=== PATIENT | female | born 1955 | race Caucasian/White ===

== ENCOUNTER 2017-05-13 06:19 | Inpatient (IN) | payer BC ==
--- NOTE | 2017-04-30 17:47 | HP ---
PREOPERATIVE HISTORY AND PHYSICAL: DATE OF ADMISSION/SURGERY: 05/13/17 ATTENDING SURGEONS: Dr. Alexis Hein and Dr. Dakotah Fox. (DICTATED BY PRIYA PATTON) PROCEDURE: Bilateral total knee replacement. CHIEF COMPLAINT: Bilateral knee pain. HISTORY OF PRESENT ILLNESS: Ingrid is a 61-year-old female who presents to the clinic for ongoing bilateral knee pain, left worse than right from severe bilateral knee osteoarthritis. She has increased pain with stairs and is only able to do stairs one at a time. She cannot walk more than 3 blocks. She has significant pain at night. She has failed conservative measures to include physical therapy and NSAIDs, therefore agreed to undergo bilateral total knee replacement with Dr. Hein and Dr. Fox on 05/13/17. PAST MEDICAL HISTORY: 1. Diabetes. 2. Hypertension. 3. Seasonal allergies. 4. Hypercholesterolemia. 5. Depression. 6. GERD. 7. Asthma. PAST SURGICAL HISTORY: 1. Hysterectomy. 2. Nose operation. Denies prior complications with anesthesia. MEDICATIONS: 1. Lipitor 10 mg 1 by mouth at night. 2. Lexapro 20 mg 1 by mouth daily. 3. Omnaris 50 mcg per ACT 1 spray each nostril daily. 4. Metformin HCl ER 500 mg, start 1 daily, increase to 3 daily. 5. Cathi Allergy 60 mg 1 by mouth every day. 6. Omeprazole 20 mg 1 by mouth every day. 7. Aleve 220 mg 2 by mouth twice a day as needed. ALLERGIES: SULFA ANTIBIOTICS. FAMILY HISTORY: Positive for heart disease, diabetes mellitus, cancer. Denies family history of DVT or PE. SOCIAL HISTORY: She lives with her spouse. She is a former smoker, quit 24 years ago. She denies alcohol use or illegal drug use. REVIEW OF SYSTEMS: General: Negative for fevers, chills, or night sweats. No known anesthesia problems. HEENT: Negative for headache, lightheadedness, or syncopal episodes. Integumentary: Negative for abrasions, lesions, or open wounds. Cardiothoracic: Negative for chest pain, palpitations, or edema. Positive for hypertension. Pulmonary: Positive for shortness of breath with exertion due to asthma. Negative for chronic cough or COPD. GI: Positive for GERD. Denies nausea, vomiting, diarrhea, or constipation. : Negative for nocturia, urinary frequency, history of UTI, or kidney problems. Musculoskeletal: Positive for current complaint of bilateral knee pain. Neurologic: Negative for numbness, tingling, history of seizure, stroke, or epilepsy. Endocrine: Positive for diabetes. Negative for thyroid issues. Hematologic: Positive for easy bruising. Denies anemia, excessive bleeding, history of bleeding disorder, or history of DVT or PE. Infectious Disease: Negative for history of MRSA, hepatitis C, or HIV. PHYSICAL EXAMINATION GENERAL: Well-developed, well-nourished 61-year-old female in no acute distress. Alert and oriented x3. Appropriate mood and affect. VITAL SIGNS: Height 62, weight 200. Pulse 74, blood pressure 174/93, temperature 96.8. BMI 32.6. HEENT: Normocephalic, atraumatic. PERRLA. NECK: Supple. Throat clear. PULMONARY: Lungs clear to auscultation bilaterally. No wheezing, rhonchi, or rales. CARDIOVASCULAR: Regular rate and rhythm. S1, S2. No murmurs, gallops, or rubs. No edema. No carotid bruits. ABDOMEN: Positive bowel sounds. Soft, nontender. NEUROLOGIC: Alert and oriented x3. Cranial nerves grossly intact. Sensation is intact to light touch. MUSCULOSKELETAL: Bilateral lower extremities: Slow gait, extension from negative 2 degrees, flexion to 115. Tenderness to palpation over the medial and lateral joint line. Stable to varus and valgus stress. Stable Manuel. Negative posterior drawer. Calves are soft and nontender. +2 dorsalis pedis and posterior tibialis pulse bilaterally. Sensation intact to light touch distally. STUDIES: Multiple radiographs of the bilateral knees show [id number] medial compartment arthritis of the bilateral knees and some changes in the lateral and patellofemoral compartment. IMPRESSION: Bilateral knee osteoarthritis. PLAN: The patient is scheduled to undergo a bilateral total knee replacement with Dr. Hein and Dr. Fox on 05/13/17. Dr. Hein will do one knee and Dr. Fox will operate on the other knee. She will return to the office 10 to 14 days postop for followup x-rays and suture removal. Percocet will be used for postop pain management and aspirin will likely be used for DVT prevention. DEBI HARRIS, PRIYA [id number]/[facility], [place] #: [id number] [place]
[~2017-05-13 06:19] MED LIST: Buffered Lidocaine 0.9% SYRIN* 5 ML/SYR SYRINGE INTRADERM ONE; Buffered Lidocaine 0.9% SYRIN* 5 ML/SYR SYRINGE ONE; Famotidine IV* 10 MG/ML 2 ML (20 mg) IV ONE; Famotidine IV* 10 MG/ML 2 ML (20 mg) ONE; ceFAZolin 2 GM PREMIX(*) 2 GM/50 ML BAG IVPB ONE
[2017-05-13] MEDS ORDERED: Insulin REGULAR(*) 1 UNITS UNIT ONE ×2 (06:26→09:49)
[2017-05-13] MEDS ORDERED: Ondansetron INJ* 2 MG/ML VIAL ONE (07:08)
[2017-05-13] MEDS ORDERED: Ketorolac INJ* 30 MG/ML 1 ML VIAL ONE (07:08)
[2017-05-13] MEDS ORDERED: Midazolam* 1 MG/ML 5 ML VIAL (5 MG) ONE (07:08)
[2017-05-13] MEDS ORDERED: Propofol* 10 MG/ML 20 ML BTL IV PUSH ONE ×2 (07:08→11:11)
[2017-05-13] MEDS ORDERED: Lidocaine 2% PF * 5 ML VIAL ONE (07:08)
[2017-05-13] MEDS ORDERED: fentaNYL* 50 MCG/ML 2 ML VIAL (100 MCG VIAL) ONE (07:08)
[2017-05-13] MEDS ORDERED: KETAMINE HCL* 50 MG/ML 10 ML VIAL ONE (07:08)
[2017-05-13] MEDS ORDERED: Dexamethasone IV* 4 MG/ML 1 ML (4 MG) ONE (07:08)
[2017-05-13] MEDS ORDERED: Bupivacaine 0.5% SDV PF* 30 ML VIAL ONE (07:27)
[2017-05-13] MEDS ORDERED: Levalbuterol HFA INHALER* 1 PUFF MDI ONE (07:27)
[2017-05-13] MEDS ORDERED: Propofol* 500 MG/50 ML BTL ONE (07:28)
[2017-05-13] MEDS ORDERED: Morphine PF AMP (0.5MG/ML)* 5 MG/10 ML AMP ONE (07:28)
[2017-05-13] MEDS ORDERED: Midazolam* 1 MG/ML 2 ML VIAL (2 MG) ONE ×2 (08:05→10:27)
[2017-05-13] MEDS ORDERED: Bupivacaine 0.5% W/EPI SDV* 10 ML VIAL INJ ONE ×2 (08:49)
[2017-05-13] MEDS ORDERED: fentaNYL* 50 MCG/ML 2 ML VIAL (100 MCG VIAL) IV PRN (09:39)
[2017-05-13] MEDS ORDERED: Ondansetron INJ* 2 MG/ML VIAL IV PRN ×2 (09:39→09:41)
[2017-05-13] MEDS ORDERED: DiMENhydriNATE IV* 50 MG/ML VIAL IV PUSH PRN (09:39)
[2017-05-13] MEDS ORDERED: Lactated Ringers 500 ml BAG* 500 ML IV PRN (09:41)
[2017-05-13] MEDS ORDERED: EPHEDrine (Pressors)* 50 MG/ML VIAL IV PUSH PRN (09:41)
[2017-05-13] MEDS ORDERED: oxyCODONE/Acetamin 5/325 MG* TAB PO PRN (09:41)
[2017-05-13] MEDS ORDERED: Naloxone* 0.4 MG/ML 1 ML VIAL IV PRN (09:47)
[2017-05-13] MEDS ORDERED: diPHENhydraMINE IV* 50 MG/ML 1 ml VIAL (BENADRYL) IV PRN ×2 (09:47→23:46)
[2017-05-13] MEDS ORDERED: Ropivacaine 0.2% EPIDURAL* 200 MG/100 ML BAG EPIDURAL SCH (10:00)
[2017-05-13] MEDS ORDERED: Ropivacaine 0.2% EPIDURAL* 200 MG/100 ML BAG EPIDURAL ONE (10:44)
[2017-05-13] MEDS ORDERED: ceFAZolin VIAL(*) 1 GM VIAL ONE (11:06)
[2017-05-13] MEDS ORDERED: Acetaminophen TAB* 325 MG PO PRN (12:28)
[2017-05-13] MEDS ORDERED: Bisacodyl SUPP* 10 MG SUPP PR PRN (12:28)
[2017-05-13] MEDS ORDERED: Dextrose 50% Syringe 50 ML* 25 GM/50 ML SYRINGE IV PUSH PRN (13:01)
[2017-05-13] MEDS ORDERED: Albuterol 2.5 MG/3 ML NEB.SOL* (0.083%) INH PRN (13:02)
[2017-05-13] MEDS ORDERED: Insulin LISPRO* 1 UNITS UNIT SUBCUT ONE (13:36)
--- NOTE | 2017-05-13 13:58 | RAD ---
Indication: Immediate postop exam following bilateral total knee replacement. Comparison: January 06, 2017 radiographs. Technique: Portable AP and cross table lateral views bilateral knees. Report: RIGHT knee: Status post total knee replacement. Anterior cutaneous alma and surgical drain in place. Post-op fluid and gas is seen in the joint space and anterior subcutaneous tissues. Alignment is anatomic. No periprosthetic fracture evident. LEFT knee: Status post total knee replacement. Anterior cutaneous alma in place. Post-op fluid and gas is seen in the joint space and anterior subcutaneous tissues. Alignment is anatomic. No periprosthetic fracture evident. IMPRESSION: Unremarkable immediate postoperative appearance following bilateral total knee replacement.
[2017-05-13] MEDS ORDERED: Warfarin TAB(*) 6 MG PO ONE (17:00)
[2017-05-13] MEDS: Atorvastatin* 10 MG TAB PO SCH (18:14)
[2017-05-13] MEDS: Insulin LISPRO* 1 UNITS UNIT SUBCUT SCH (18:15)
[2017-05-13] MEDS: Omeprazole CAP* 20 MG PO SCH (18:15)
[2017-05-13] MEDS: ceFAZolin VIAL(*) 1 GM in NS 0.9% 50 ML* 50 ML IVPB SCH (18:18)
[2017-05-13 20:33] LABS: Hematocrit 34 % (35-47)
[2017-05-13] MEDS: Docusate CAP* 100 MG PO SCH (21:51)
--- NOTE | 2017-05-13 22:23 | CONS ---
CC: Dr. Hein; Lisa Rogers NP * CONSULTATION REPORT: DATE OF CONSULT: 05/13/17 REQUESTING PHYSICIAN FOR CONSULT: Dr. Hein. ATTENDING PHYSICIAN WHILE IN THE HOSPITAL: Armando Avila MD (report dictated by Live Marvin NP). PRIMARY CARE PROVIDER: Lisa Rogers NP in [place]. REASON FOR MEDICAL CONSULTATION: Evaluation and medical management of comorbid medical conditions. HISTORY OF PRESENT ILLNESS: Ms. Lopez is a 61-year-old female patient that presented to the outpatient setting to Dr. Hein and Dr. Fox with complaints of bilateral lower knee pain. It was affecting her activities of daily living. She was failing conservative therapy. The patient ultimately elected to go for bilateral total knee replacement which she underwent today. She does carry a history of diabetes, hyperlipidemia, GERD, depression, and asthma. Because of this, we were asked to evaluate in consult. She was evaluated in the PACU in the postoperative setting. She states she is feeling well. She has no sensations to her lower extremities. She denies having any chest pain or shortness of breath. There is no abdominal pain. She denies having any abdominal pain. She states that her pain is well controlled currently in her knees. There is no lightheadedness. Denies having any chest pain or shortness of breath, but because of her medical complexity, we were asked to evaluate in consult. PAST MEDICAL HISTORY: Significant for: 1. Diabetes. 2. Hyperlipidemia. 3. Gastroesophageal reflux disease. 4. Depression. 5. Asthma. PAST SURGICAL HISTORY: 1. She has had a hysterectomy. 2. She has had nasal surgery. 3. She has recently had a bilateral total knee replacement. HOME MEDICATIONS: According to the preop list include: 1. Metformin 1000 mg p.o. daily. 2. Prilosec 20 mg daily. 3. Edison-3 fatty acid 1000 mg p.o. b.i.d. 4. Naproxen 440 mg p.o. q.p.m. 5. Multivitamin 1 tablet daily. 6. Fexofenadine 180 mg p.o. daily. 7. Lexapro 20 mg daily. 8. Acetaminophen 500 mg p.o. daily. 9. Calcium 500 mg daily. 10. Lipitor 10 mg p.o. daily. ALLERGIES TO MEDICATIONS: Include SULFA and AUGMENTIN. FAMILY HISTORY: Her mother had a history of CVA. Father had a history of OR. SOCIAL HISTORY: She is a former smoker. She quit about 24 years ago. She does not drink alcohol. Surrogate decision make is her . REVIEW OF SYSTEMS: There is no documented fever. Denied having any significant weight change. There was no double vision. There is no ear discharge. There was no rhinorrhea. There was no sore throat. No thyroid enlargement. Denied having any chest pain. There was no orthopnea. No nocturnal dyspnea. There is no abdominal pain. No nausea, no vomiting. No dysuria, no frequency. No loss of consciousness. No pruritus and no skin ulcerations. Review of 14 systems completed, all others negative. PHYSICAL EXAM: Vital Signs: Blood pressure 101/56 with a pulse 79, respirations 16, O2 sat 95% on 2 L, temperature was 96.8. General: At this time, Ms. Lopez is a 61-year-old female patient. She is sitting in the PACU bed. She does not appear to be in any acute distress. HEENT: Head is atraumatic, normocephalic. Eyes: EOMs intact. Sclerae anicteric and not pale. Neck: Supple. Throat: Oral mucosa appears to be moist. No oropharyngeal erythema. Heart: Sounds S1, S2. Regular rate and rhythm. No murmurs, rubs or gallops. Lungs: Clear to auscultation. No wheezes, rales or rhonchi. Abdomen: Soft, flat, nontender. Bowel sounds hypoactive. Extremities: She had distal pulses in bilateral lower extremities. She had good cap refill. She has no sensation or movement of lower extremities because of recent spinal anesthesia, but other distal SCM checks were intact. She is moving the upper extremity with 5/5 strength. Neurologically, she is awake, she is alert, she is oriented x3. Tongue is midline. Medical Concierge were equal. No gross focal deficits. The skin is intact with the exception she has got bilateral incision to her knees, which are covered with Hugh dressings and there are Hemovac's intact. DIAGNOSTIC STUDIES/LAB DATA: She had an EKG preoperatively, which does show a normal sinus rhythm rate of 74. No ST elevations or T-wave inversions noted. She had a negative UA. Preoperatively INR 0.90. Her hemoglobin was 14.2, hematocrit 42, RBC of 4.56, glucose was 362, but her A1c was 8.1. BUN 12, creatinine 0.90, sodium 137, potassium 5.1, chloride 104, bicarb 29, AST 29, ALT 76. Old medical records were reviewed. ASSESSMENT AND PLAN: Ms. Lopez is a 61-year-old female patient presenting to Dr. Hein service today for an elective bilateral total knee replacement. We were asked to evaluate for consult for medical management. Our recommendations at this point are: 1. Bilateral total knee replacement. I will defer the management to Dr. Hein and his team. 2. Diabetes. I will put her on lispro sliding scale. 3. Hyperlipidemia. Continue statin. 4. Gastroesophageal reflux disease. Continue PPI therapy. 5. Depression. Continue Lexapro. 6. History of asthma. I did order p.r.n. albuterol and I would recommend incentive spirometry. 7. DVT prophylaxis. I will defer to the primary team. 8. Code Status. Full code. 9. Fluids, electrolytes and nutrition. I would recommend a consistent carb diet. TIME SPENT: Time spent on the consult was 60 minutes, greater than half the time was spent [id number] with the patient obtaining my history and physical, the other half the time spent going over the plan of care with the patient and implementing plan of care. I did discuss the plan of care with my attending, Dr. Avila, he is in agreement. LIVE MARVIN, DANE [id number]/[facility] #: [id number] [place]
[2017-05-13] MEDS: oxyCODONE/Acetamin 5/325 MG* TAB PO PRN (23:58)
[2017-05-14] MEDS: ceFAZolin VIAL(*) 1 GM in NS 0.9% 50 ML* 50 ML IVPB SCH ×2 (00:57→08:23)
[2017-05-14] MEDS: oxyCODONE/Acetamin 5/325 MG* TAB PO PRN ×4 (05:51→23:18)
[2017-05-14] MEDS ORDERED: Morphine INJ* 2 MG/ML 1 ML SYRINGE IV PRN (06:01)
[2017-05-14] MEDS ORDERED: oxyCODONE/Acetamin 5/325 MG* TAB PO PRN (06:01)
[2017-05-14] MEDS ORDERED: Ondansetron INJ* 2 MG/ML VIAL IV PRN (06:01)
[2017-05-14 06:26] LABS: Hematocrit 29 % (35-47); Hemoglobin 9.7 g/dl (12.0-16.0); Mean Corpuscular HGB Conc 34 g/dl (31-36); Mean Corpuscular Hemoglobin 31 pg (27-31); Mean Corpuscular Volume 91 fL (80-97); Mean Platelet Volume 9 um3 (7.4-10.4); Red Blood Count 3.15 10^6/ul (4.0-5.4); Red Cell Distribution Width 12 % (10.5-15); White Blood Count 12.4 10^3/ul (3.5-10.8)
[2017-05-14 06:45] LABS: Calcium 8.4 mg/dL (8.6-10.3); EGFR African American 123.1 (>60); EGFR Non-African American 95.8 (>60); Potassium 4.1 mmol/L (3.5-5.0)
[2017-05-14] MEDS: Insulin LISPRO* 1 UNITS UNIT SUBCUT SCH ×3 (08:22→17:41)
[2017-05-14] MEDS: Docusate CAP* 100 MG PO SCH ×2 (08:23→20:29)
[2017-05-14] MEDS: Citalopram TAB* 40 MG PO SCH (08:23)
[2017-05-14] MEDS: Aspirin TAB* 325 MG PO SCH (10:03)
[2017-05-14] MEDS: Heparin VIAL(*) 5000 UNITS/ML VIAL (FIVE THOUSAND) SUBCUT SCH ×2 (10:04→20:30)
--- NOTE | 2017-05-14 13:08 | OP ---
DATE OF OPERATION: 05/13/17 - ROOM #346 DATE OF : 53 SURGICAL CARE: Bilateral knees. SURGEONS: 1. Right knee, Alexis Hein MD 2. Left knee, Dakotah Fox MD ANESTHESIOLOGIST: Arnav Thakur MD. ANESTHESIA: Spinal with Duramorph and epidural, IV sedation. PRE-OP DIAGNOSIS: Severe arthritis, left knee and right knee with some varus alignment. POST-OP DIAGNOSIS: Severe arthritis, left knee and right knee with some varus alignment. OPERATIVE PROCEDURE: 1. Right total knee replacement - Dr. Alexis Hein; assisted by PRIYA Leonard , librarian assistant. 2. Left total knee replacement - Dr. Dakotah Fox, surgeon; PRIYA Del Rio, librarian assistant. COMPLICATIONS: There were no complications. DRAINS: Two blood collection drains were utilized on the right knee. ESTIMATED BLOOD LOSS: 350 mL. REPLACEMENT: Crystalloid fluids. CONDITION: Stable to the recovery room. INDICATION FOR SURGERY: Severe knee arthritis, no longer responsive to nonoperative care. The total knee replacements were on the right knee, the Lisbet Persona knee posterior stabilized size F, size 5 femur, 32 patella, 10 articular surface, and a C tibia with a peg extension. Cemented. The left total knee replacement was Lisbet Persona cruciate retaining prosthesis size 5 femur, 29 patella, 12 articular surface and a size C tibia. Cemented. The surgical care was done simultaneously with Dr. Hein doing the right knee and the librarian assistant was Ryan Gamez, and Dr. Fox did the left knee and the librarian assistant was Jayro Fierro. DESCRIPTION OF PROCEDURE: The patient was brought to the operating room and placed on the operating table in supine position following the administration of the spinal anesthetic and insertion of the Duramorph and then the epidural catheter. The patient was carefully placed in the supine position and positioned on the table. Conway catheter was carefully inserted. Each leg was then wrapped with a proximal thigh tourniquet and each leg after careful positioning and placing of foot pieces. Each leg was given a preliminary chlorhexidine prep and then a formal ChloraPrep from the tourniquet to the tips of the toes. After prepping, draping and carefully sealing off, we did our universal protocol time-out confirming Ingrid Saucedocher and the plan for bilateral total knee replacements to be done simultaneously by the 2 surgeons. We all agreed and we proceeded. On the left knee, the leg was exsanguinated and the tourniquet elevated to 300. The tourniquet time on the left knee was 2 hours with a rest period and then another hour and on the right knee, the tourniquet was utilized in the cleanup and cementing phase of the case but was not utilized otherwise. On the right knee, careful hemostasis checked and achieved throughout the case as it was on the left and the tourniquet was utilized at the time of cleanup and cement. Right Knee: The skin incision went from the medial aspect of the tibial tubercle to two fingerbreadths proximal to the superior pole of the patella. Skin and subcu divided down to the bursa. The bursa was traversed and the knee was entered medial parapatellar dividing the anteromedial soft tissues on the tibia down to the bone just medial to the tibial tubercle going up to the joint line and then to the medial patella and dividing the quad mechanism close to the junction of the vastus medialis tendon and the rectus femoris tendon going 3 to 4 cm proximal to superior pole of the patella. The patella was everted. The peripatellar synovectomy was completed. The anteromedial soft tissues on the tibia were elevated subperiosteally going around to the deep MCL and then to the posteromedial corner of the knee. The patient had complete eburnation of bone on the medial femoral condyle, medial tibial plateau, large osteophytes there and moderate degenerative changes in the lateral and patellofemoral compartment. The remains of the anterior horn of medial meniscus were carefully excised. The ACL and PCL were uplifted from their femoral origins and the tibia was made so that could be subluxated for from under the femur and careful hemostasis was checked and achieved while working posteriorly with careful use of electrocautery. The lateral meniscus was carefully excised and care was taken to keep good hemostasis peripheral to the lateral meniscus in the region of the lateral geniculate. The distal anterior femur was exposed subperiosteally for referencing and measuring. Once the exposure was obtained, then the proximal tibial cut was made first. The patient had a small flexion contracture of the knee, so the distal femoral cutting guide was applied with a goal of having the tibial surface that would be perpendicular to long access of the tibia and had a slight posterior slope removing 3 to 4 mm of bone on the low medial side and 8 to 11 mm laterally. After the tibial cut was completed, the femoral intramedullary drill was utilized. The femoral canal was suctioned to discourage embolization. The femoral cutting guide was applied on #1 because of slight flexion contracture and 6 degrees of valgus. The distal femoral cut was completed. The extension gap was noted to be very satisfactory for the 10 mm block. The femur was measured for a size 5. The anterior, posterior and chamfering cuts were completed. Following this, we finished removal of the PCL , posterior horn of medial meniscus and at this stage, we had nice ligamentous balance and 90 degrees of flexion with a 10 mm block and an extension with a 10 mm block. The femur was completed with the intercondylar cutout. The tibia was completed for a size C. The knee was articulated and extended with a c tibia 10 articular surface and the 5 femur with good full knee extension, stable ligaments in extension, stable ligaments in 90 degrees of flexion. The patella was cut flat. A 32 was chosen. Some excess cartilage was removed from the lateral facet and the odd facet and 3 drill holes were made and these were undercut for optimal cement digitation. The femoral canal was cleaned times 6 to 7 with saline, suctioned empty and the bone plug was inserted. The right leg was then exsanguinated, tourniquet elevated to 275 and the knee was cleaned in extension with 2 L of pulse saline irrigation. The knee was cleaned in flexion with retractors in place. All bony surfaces were cleaned and then dried. The cement was mixed and the components were cemented into position, patella followed by tibia, followed by femur. Each component was impacted. Excess cement was removed and the knee was articulated and extended during the final hardening. We then deflated the tourniquet. Careful hemostasis checked and achieved throughout the closure. We irrigated several times during closure with saline. We elected to use 2 drains coming out of the superolateral suprapatellar pouch. The quad mechanism closed with interrupted # 1 Polysorb in [id number] fashion, the same with the medial retinaculum and more distally we used 0 Polysorb. The deep bursa closed with interrupted 0 Polysorb and then the superficial subcu were used 3- 0 Polysorb inverted stitches. The knee was infiltrated during the closure with Marcaine 0.5% with epinephrine 30 mL, 15 mL posteromedially, 5 medially, 5 laterally and another 5 mL intra-articular. The skin was closed with alma. The skin was then washed and dried, covered with Betadine soaked release followed by sterile gauze. The drains were dressed with the same and sterile Webril, further Webril , Cryotherapy cuff and then a 6-inch Hugh bandage loosely applied. The dorsalis pedis pulse was 2+ at the end of the case and the procedure was well tolerated. Dr. Fox will dictate the procedure on the left knee. At the end the surgeries were washed and dressed. The right knee was dressed with sterile gauze, sterile Webril, Cryotherapy cuff, and a 6-inch Hugh bandage loosely applied. The left and right dorsalis pedis pulses were 2+ at the end of the case and the patient was returned to the recovery room in stable and satisfactory condition having tolerated the knee replacements very well. [id number]/[facility] #: [id number] MTDD
[2017-05-14] MEDS: oxyCODONE TAB* 5 MG TAB PO PRN ×2 (13:25→20:29)
--- NOTE | 2017-05-14 15:09 | PN ---
Subjective Date of Service: 05/14/17 Objective Active Medications: Acetaminophen (Tylenol Tab*) 650 mg PO Q4H PRN PRN Reason: PAIN OR TEMPERATURE Albuterol (Ventolin 2.5 Mg/3 Ml Neb.Shanon*) 2.5 mg INH Q2H PRN PRN Reason: SOB/WHEEZING Aspirin (Aspirin Tab*) 325 mg PO DAILY [facility] Last Admin: 05/14/17 10:03 Dose: 325 mg Atorvastatin Calcium (Lipitor*) 10 mg PO QPM [facility] Last Admin: 05/13/17 18:14 Dose: 10 mg Bisacodyl (Dulcolax Supp*) 10 mg [place] DAILY PRN PRN Reason: constipation Citalopram Hydrobromide (Celexa Tab*) 40 mg PO QAM [facility] Last Admin: 05/14/17 08:23 Dose: 40 mg Dextrose (D50w Syringe 50 Ml*) 12.5 gm IV PUSH .FOR FS < 60 - SS PRN PRN Reason: FS < 60 Diphenhydramine HCl (Benadryl Iv*) 25 mg IV Q6H PRN PRN Reason: itching or insomnia Docusate Sodium (Colace Cap*) 100 mg PO BID [facility] Last Admin: 05/14/17 08:23 Dose: 100 mg Heparin Sodium (Porcine) (Heparin Vial(*)) 5,000 units SUBCUT BID [facility] Last Admin: 05/14/17 10:04 Dose: 5,000 units Lactated Ringer's (Lactated Ringers 1000 Ml Bag*) 1,000 mls @ 125 mls/hr IV PER RATE [facility] Last Admin: 05/14/17 10:01 Dose: 125 mls/hr Insulin Human Lispro (Humalog*) 0 units SUBCUT AC [facility] PRN Reason: Protocol Last Admin: 05/14/17 12:30 Dose: 3 unit Morphine Sulfate (Morphine Inj (Syringe)*) 2 mg IV Q2H PRN PRN Reason: PAIN - UNCONTROLLED Omeprazole (Prilosec Cap*) 20 mg PO QPM [facility] Last Admin: 05/13/17 18:15 Dose: 20 mg Ondansetron HCl (Zofran Inj*) 4 mg IV Q6H PRN PRN Reason: nausea Oxycodone HCl (Roxycodone Tab*) 10 mg PO Q4H PRN PRN Reason: pain severe Last Admin: 05/14/17 13:25 Dose: 10 mg Oxycodone/Acetaminophen (Percocet 5/325 Tab*) 1 tab PO Q4H PRN PRN Reason: PAIN - MODERATE Oxycodone/Acetaminophen (Percocet 5/325 Tab*) 2 tab PO Q4H PRN PRN Reason: PAIN - MODERATE TO SEVERE Last Admin: 05/14/17 10:07 Dose: 2 tab Vital Signs 05/13/17 05/13/17 05/13/17 15:15 15:35 15:45 Temperature 97.6 F Pulse Rate 69 70 Respiratory 16 14 14 Rate Blood Pressure 120/66 113/54 (mmHg) O2 Sat by Pulse 97 94 Oximetry 05/13/17 05/13/17 05/13/17 16:00 16:41 17:32 Temperature 97.5 F 98.0 F Pulse Rate 70 75 Respiratory 16 17 Rate Blood Pressure 124/69 128/66 (mmHg) O2 Sat by Pulse 97 95 96 Oximetry 05/13/17 05/13/17 05/13/17 19:43 20:00 21:26 Temperature 98.1 F 98.3 F Pulse Rate 73 67 Respiratory 20 16 17 Rate Blood Pressure 130/67 127/64 (mmHg) O2 Sat by Pulse 95 96 Oximetry 05/13/17 05/13/17 05/13/17 22:03 23:52 23:58 Temperature 98.0 F Pulse Rate 68 71 Respiratory 14 16 16 Rate Blood Pressure 117/53 (mmHg) O2 Sat by Pulse 97 99 Oximetry 05/14/17 05/14/17 05/14/17 00:00 01:58 04:28 Temperature 97.7 F Pulse Rate 64 Respiratory 14 16 Rate Blood Pressure 130/55 (mmHg) O2 Sat by Pulse 99 96 Oximetry 05/14/17 05/14/17 05/14/17 05:51 07:30 07:51 Temperature 97.6 F Pulse Rate 70 Respiratory 16 17 18 Rate Blood Pressure 129/61 (mmHg) O2 Sat by Pulse 97 Oximetry 05/14/17 05/14/17 05/14/17 08:00 10:07 11:21 Temperature 98.1 F Pulse Rate 74 Respiratory 18 18 16 Rate Blood Pressure 138/61 (mmHg) O2 Sat by Pulse 97 96 Oximetry 05/14/17 05/14/17 12:07 13:25 Temperature Pulse Rate Respiratory 18 18 Rate Blood Pressure (mmHg) O2 Sat by Pulse Oximetry Result Diagrams: 05/14/17 05:33 05/14/17 05:33 Assess/Plan/Problems-Billing Assessment:
--- NOTE | 2017-05-14 15:15 | PN ---
Subjective Date of Service: 05/14/17 Interval History: Patient seen and examined at bedside. Ms. Lopez is sitting up in bed eating lunch. She reports some mild discomfort to her knees but states that it' s manageable. Reports good relief with the pain medication regimen. Denies CP, SOB, n/v. Tolerating PT well. At home, she reports that her BG is usually well controlled in the 120s-130s. Family History: Unchanged from Admission Social History: Unchanged from Admission Past Medical History: Unchanged from Admission Objective Active Medications: Acetaminophen (Tylenol Tab*) 650 mg PO Q4H PRN PRN Reason: PAIN OR TEMPERATURE Albuterol (Ventolin 2.5 Mg/3 Ml Neb.Shanon*) 2.5 mg INH Q2H PRN PRN Reason: SOB/WHEEZING Aspirin (Aspirin Tab*) 325 mg PO DAILY [facility] Last Admin: 05/14/17 10:03 Dose: 325 mg Atorvastatin Calcium (Lipitor*) 10 mg PO QPM [facility] Last Admin: 05/13/17 18:14 Dose: 10 mg Bisacodyl (Dulcolax Supp*) 10 mg MO DAILY PRN PRN Reason: constipation Citalopram Hydrobromide (Celexa Tab*) 40 mg PO QAM [facility] Last Admin: 05/14/17 08:23 Dose: 40 mg Dextrose (D50w Syringe 50 Ml*) 12.5 gm IV PUSH .FOR FS < 60 - SS PRN PRN Reason: FS < 60 Diphenhydramine HCl (Benadryl Iv*) 25 mg IV Q6H PRN PRN Reason: itching or insomnia Docusate Sodium (Colace Cap*) 100 mg PO BID [facility] Last Admin: 05/14/17 08:23 Dose: 100 mg Heparin Sodium (Porcine) (Heparin Vial(*)) 5,000 units SUBCUT BID [facility] Last Admin: 05/14/17 10:04 Dose: 5,000 units Lactated Ringer's (Lactated Ringers 1000 Ml Bag*) 1,000 mls @ 125 mls/hr IV PER RATE [facility] Last Admin: 05/14/17 10:01 Dose: 125 mls/hr Insulin Human Lispro (Humalog*) 0 units SUBCUT AC [facility] PRN Reason: Protocol Last Admin: 05/14/17 12:30 Dose: 3 unit Morphine Sulfate (Morphine Inj (Syringe)*) 2 mg IV Q2H PRN PRN Reason: PAIN - UNCONTROLLED Omeprazole (Prilosec Cap*) 20 mg PO QPM [facility] Last Admin: 05/13/17 18:15 Dose: 20 mg Ondansetron HCl (Zofran Inj*) 4 mg IV Q6H PRN PRN Reason: nausea Oxycodone HCl (Roxycodone Tab*) 10 mg PO Q4H PRN PRN Reason: pain severe Last Admin: 05/14/17 13:25 Dose: 10 mg Oxycodone/Acetaminophen (Percocet 5/325 Tab*) 1 tab PO Q4H PRN PRN Reason: PAIN - MODERATE Oxycodone/Acetaminophen (Percocet 5/325 Tab*) 2 tab PO Q4H PRN PRN Reason: PAIN - MODERATE TO SEVERE Last Admin: 05/14/17 10:07 Dose: 2 tab Vital Signs 05/13/17 05/13/17 05/13/17 15:15 15:35 15:45 Temperature 97.6 F Pulse Rate 69 70 Respiratory 16 14 14 Rate Blood Pressure 120/66 113/54 (mmHg) O2 Sat by Pulse 97 94 Oximetry 05/13/17 05/13/17 05/13/17 16:00 16:41 17:32 Temperature 97.5 F 98.0 F Pulse Rate 70 75 Respiratory 16 17 Rate Blood Pressure 124/69 128/66 (mmHg) O2 Sat by Pulse 97 95 96 Oximetry 05/13/17 05/13/17 05/13/17 19:43 20:00 21:26 Temperature 98.1 F 98.3 F Pulse Rate 73 67 Respiratory 20 16 17 Rate Blood Pressure 130/67 127/64 (mmHg) O2 Sat by Pulse 95 96 Oximetry 05/13/17 05/13/17 05/13/17 22:03 23:52 23:58 Temperature 98.0 F Pulse Rate 68 71 Respiratory 14 16 16 Rate Blood Pressure 117/53 (mmHg) O2 Sat by Pulse 97 99 Oximetry 05/14/17 05/14/17 05/14/17 00:00 01:58 04:28 Temperature 97.7 F Pulse Rate 64 Respiratory 14 16 Rate Blood Pressure 130/55 (mmHg) O2 Sat by Pulse 99 96 Oximetry 05/14/17 05/14/17 05/14/17 05:51 07:30 07:51 Temperature 97.6 F Pulse Rate 70 Respiratory 16 17 18 Rate Blood Pressure 129/61 (mmHg) O2 Sat by Pulse 97 Oximetry 05/14/17 05/14/17 05/14/17 08:00 10:07 11:21 Temperature 98.1 F Pulse Rate 74 Respiratory 18 18 16 Rate Blood Pressure 138/61 (mmHg) O2 Sat by Pulse 97 96 Oximetry 05/14/17 05/14/17 12:07 13:25 Temperature Pulse Rate Respiratory 18 18 Rate Blood Pressure (mmHg) O2 Sat by Pulse Oximetry Oxygen Devices in Use Now: None Appearance: Pleasant, middle aged female, sitting up in bed, NAD Eyes: No Scleral Icterus Ears/Nose/Mouth/Throat: Mucous Membranes Moist Neck: NL Appearance and Movements; NL JVP Respiratory: Symmetrical Chest Expansion and Respiratory Effort, Clear to Auscultation Cardiovascular: NL Sounds; No Murmurs; No JVD, RRR Abdominal: NL Sounds; No Tenderness; No Distention Extremities: - - bilateral knee dressings c/d/i, distally nvi Neurological: Alert and Oriented x 3, NL Muscle Strength and Tone Lines/Tubes/Other Access: Clean, Dry and Intact Peripheral IV Nutrition: Taking PO's Result Diagrams: 05/14/17 05:33 05/14/17 05:33 Assess/Plan/Problems-Billing Assessment: Ms. Lopez is a 61 yo female with a PMH of DM, HLD, GERD, depression, and asthma who was electively admitted on 05/13 for bilateral total knee replacements. - Patient Problems (1) Status post total bilateral knee replacement Code(s): Z96.653 - PRESENCE OF ARTIFICIAL KNEE JOINT, BILATERAL Comment: POD #1, management per ortho Mild dip HH but hemodynamically stable, continue to monitor PT/OT PMRU referral Pain management (2) Diabetes mellitus Code(s): E11.9 - TYPE 2 DIABETES MELLITUS WITHOUT COMPLICATIONS Comment: Mildly elevated, fasting BG in 150s this AM Suspect stress response, patient reports good control at home Check A1c, continue Lispro SSI, may add Lantus for better baseline control (3) HLD (hyperlipidemia) Code(s): E78.5 - HYPERLIPIDEMIA, UNSPECIFIED Comment: Continue home atorvastatin. (4) GERD (gastroesophageal reflux disease) Code(s): K21.9 - GASTRO-ESOPHAGEAL REFLUX DISEASE WITHOUT ESOPHAGITIS Comment : Continue omeprazole. (5) Asthma Code(s): J45.909 - UNSPECIFIED ASTHMA, UNCOMPLICATED Comment: Continue prn albuterol (6) Depression Code(s): F32.9 - MAJOR DEPRESSIVE DISORDER, SINGLE EPISODE, UNSPECIFIED Comment: Continue citalopram (7) DVT prophylaxis Comment: Per ortho ASA and SQ heparin Status and Disposition: Inpatient admission. Dispo per ortho. Hospitalist co medical management.
[2017-05-14] MEDS: Omeprazole CAP* 20 MG PO SCH (17:40)
[2017-05-14] MEDS: Atorvastatin* 10 MG TAB PO SCH (17:40)
[2017-05-14 19:05] LABS: Hematocrit 30 % (35-47); Hemoglobin 9.8 g/dl (12.0-16.0)
--- NOTE | 2017-05-14 19:37 | OP ---
DATE OF OPERATION: 05/13/17 - ROOM #346 DATE OF : 53 SURGEON: Alexis Hein MD ASSISTANTS: 1. Dakotah Fox MD 2. PRIYA Del Rio 3. PRIYA Perez ANESTHESIOLOGIST: Arnav Thakur MD. ANESTHESIA: Epidural anesthesia, local anesthesia. PRE-OP DIAGNOSIS: Bilateral knee osteoarthritis. POST-OP DIAGNOSIS: Bilateral knee osteoarthritis. OPERATIVE PROCEDURE: Bilateral total knee arthroplasty. IV FLUIDS: 2800 cc crystalloid. ANTIBIOSIS: 2 g Ancef IV just prior to incision and 2 g Ancef IV near closure, 3 hours later. TOURNIQUET TIME, LEFT: Left lower extremity tourniquet time was 120 minutes. Tourniquet was then deflated for 15 minutes and then reinflated for 60 minutes. ESTIMATED BLOOD LOSS, BILATERAL: 250 cc for bilateral knees COMPLICATIONS: None. IMPLANTS, LEFT: For the left knee were as follows: Lisbet Persona knee, femur size 5, cruciate retaining, tibia size C, patella size 29 and insert, polyethylene, 12, CR. SPECIMEN: None. INDICATIONS FOR PROCEDURE: The patient had a long history of osteoarthritis of bilateral knees, insufficiently responsive to nonoperative management, and she opted for total knee arthroplasty procedure. The patient preferred bilateral total knee arthroplasties performed in 1 procedure, and she had discussed with Dr. Hein the benefits, risks, and complications of the arthroplasty procedure and the bilateral arthroplasty procedure specifically. They reviewed thoroughly these benefits, risks, and possible complications. DESCRIPTION OF PROCEDURE - LEFT TOTAL KNEE ARTHROPLASTY: Preoperative written consent was obtained. Operative extremity was marked in preoperative holding along with the operative right lower extremity. The patient was taken back to the operating room and sat up on operating room table. Epidural catheter was placed by anesthesiologist, Dr. Thakur. The patient was next sedated. The patient was placed supine. Left knee examination under anesthesia was performed and demonstrated approximately 0 to 115 degrees of flexion. Stable varus, valgus and ACL, PCL stress testing. A proximal left thigh tourniquet was placed, but not yet inflated. A lateral post was placed attached to the bed to prevent external rotation of the left lower extremity. Two bumps were placed on the table such that the left knee would be held in 90 and approximately 110 degrees of flexion. The bilateral lower extremities were prepped and draped. Surgical time-out was performed. Esmarch was applied to the left lower extremity and the tourniquet was elevated to 300 mmHg. An anterior midline longitudinal incision was made from 3 fingerbreadths proximal to the proximal pole of the patella to 2 fingerbreadths distal to the proximal most extent of the tibial tuberosity. The knife was exchanged for a deep knife and dissection was continued down to the patella. Subcutaneous tissue overlying the extensor mechanism proximally was cut with a curved Fernandez. Using severing strokes, the 10 blade revealed the medial aspect of the extensor mechanism from the tibial tuberosity to the quadriceps mechanism. Cross harrington with Bovie electrocautery and marker was used to guy the superomedial corner of the extensor mechanism. A pen was then used to outline the arthrotomy incision. This was all done with the knee in 90 degrees of flexion. A deep 10 blade was then used to make a medial parapatellar arthrotomy including a quadriceps split. Distally, this incision was carried down through the anterior horn of the medial meniscus. Joint fluid was evacuated. Extensive degenerative changes throughout the knee were appreciated visually. The knee was then fully extended. Bovie electrocautery was used to subperiosteally peel back capsule from the anteromedial aspect of the medial tibial plateau. A one- fourth curved osteotome was used to continue this dissection to the mid sagittal point medially on the medial tibial plateau. We continued the electrocautery and finger dissection lateral from the parapatellar arthrotomy along the lateral tibial plateau. We partially everted the patella. With Bovie electrocautery, we released a ring of soft tissue around the patella. We next released some, but not all, of the fat pad deep to the patellar tendon. With these maneuvers, the patella everted much more easily. We then placed a Schnitt deep to the lateral patellofemoral ligament and released it with Bovie electrocautery. The patella nicely everted comfortably without excess tension on its insertion on the tibial tubercle and easily allowed me to keep it everted as we flexed the knee to 90 degrees of flexion. We placed Hohmann retractors, medial and lateral. We visualized the ACL, placed a Schnitt posterior to it and cut it mid substance. We removed the proximal and distal stumps with a rongeur. We used the rongeur to remove some osteophytes in the intercondylar notch as well as some more prominent ones about the peripheral aspects of the condyles, femoral. We next marked an entry point for my femoral reamer, 1 cm proximal to the anterior most part of the intercondylar notch at the origin of the PCL. This was just medial to midline. We entered my drill, placed on ream, and reamed the femoral canal. We removed the reamer, irrigated the canal, and sucked up the irrigant. We placed a distal femoral cutting guide down the femoral canal. We set it to 6 degrees of valgus and 10 mm of resection. We resected with an oscillating saw. This instrument was removed. We next placed a distal femoral sizing guide. We sized the distal femur to a 5. We drilled holes through the sizing guide and then we placed a 4-in-1 cutting guide. That wing confirmed the appropriateness of the anterior cut. Cross pins were placed in the 4-in-1 cutting guide. We made anterior posterior , anterior chamfer, and posterior chamfer cuts. All vital structures medial and lateral were retracted appropriately with a Hohmann. Anterior Chamfer cut was set aside for use later. Of note, the distal femoral sizing guide was finicky and took some time to place appropriate on the distal end of the femur. Attention was next addressed to the tibia. External alignment guide was placed. Hohmann retractors were placed appropriately. External tibial alignment guide was placed to be aligned with the second metatarsal mid point of the talus and the tibial crest. Special attention was paid to have the cutting jig be aligned with the anterior to posterior access of the tibia. Several cuts at the tibia were made for a total of removal of 6 mm of the medial tibial plateau, the low side in a fairly anatomic knee with not significant difference between medial and lateral sides. Great care was taken to avoid any injury to the patellar tendon or other structures, likewise PCL. Some osteophyte was removed with rongeur from the medial tibia. Some very small osteophytes were removed from the posterior aspect of the femur medially and laterally with a curved osteotome and mallet. Laminar spreaders were next placed and medial and lateral meniscus were removed with Bovie electrocautery from the junction of meniscus to capsule. Popliteus was respected laterally. Spacers were placed. Initially, the flexion gap was tighter than the extension gap. At this point, those posterior osteophytes were removed from the femur and an additional cut was made of the tibia to get to a total of 6 mm of bone taken off the medial tibial plateau. Spacers were re-placed and the flexion and extension gaps were grossly symmetric. Knee was stable to varus and valgus stress. Attention was next directed towards the patella. The patella [place] depth was measured. Using free hand technique and oscillating saw, the patella was removed, under surface to a depth of 13 mm. The patella was sized to 29 mm. A guide was used to drill 3 holes. An osteophytic lateral patellar facet peripherally was removed with rongeur. Patella button fit nicely. Attention was directed to the preparation of the tibia. The tibia component was first floated. We put a trial femur in place, through that we drilled 2 holes for later final implant. We next placed a 10 mm insert and a size C tibial trial. Using the float technique, we determined that the tibial implant preferred to be aligned such that anteriorly it would like to be at the medial third of the patella, as should be the case. We removed these implants. We next sized the tibia and it sized to a size C. We placed the appropriate tibial sizer in place with 2 pins. The tibia was reamed and then punched. At this point, the femur, patella, and tibia had all been prepared. Extension and flexion gaps were nicely symmetric. It was decided to drop the tourniquet as we were at 2 hours. We dropped the tourniquet for 15 minutes, then reapplied the Esmarch and re-elevated the tourniquet. We irrigated well the knee. Placed anterior chamfer bone plug in the femoral canal hole. Mixed cement and opened implants. Cemented tibia, then femur. Placed a trial 10 [address] as a place lozoya. We placed the patella button with clamp. We waited for cement to harden. We then trialed the knee with trial inserts at 10, 11, and 12 mm sizes. We liked the 12 mm size the best. Therefore, we opted for a 12 mm final insert implant. This was opened and placed after additional irrigation. The knee was placed in proximally 40 degrees of flexion and the parapatellar arthrotomy was closed with [id number] stitches using mostly Vicryl 0 suture. Two [id number] stitches were closed using Ti-Cron 0 permanent suture. Irrigation. Subcutaneous tissue was closed with buried simple stitches using Vicryl 2.0 suture. Skin closed with alma. Iodine-soaked Adaptic was placed over the incision. This was followed by 4x4s, ABDs, sterile Webril, Hugh bandage from foot to proximal thigh. Tourniquet was dropped. Icing machine was placed over the left knee. The patient was lightened of sedation and transferred to the PACU for admission to the floor postoperatively. DISPOSITION: The patient will have pain control. Anticoagulation per Dr. Hein. Advance diet as tolerated and physical therapy for ambulation and range of motion bilateral knees. [id number]/[facility] #: [id number] MTDD
[2017-05-14] MEDS ORDERED: Insulin GLARGINE(*) 1 UNITS UNIT SUBCUT SCH (20:00)
[2017-05-15] MEDS: oxyCODONE TAB* 5 MG TAB PO PRN ×2 (03:26→09:40)
[2017-05-15] MEDS: oxyCODONE/Acetamin 5/325 MG* TAB PO PRN (05:51)
[2017-05-15 07:52] VITALS: BP 140/58
[2017-05-15] MEDS: Insulin LISPRO* 1 UNITS UNIT SUBCUT SCH (08:21)
--- NOTE | 2017-05-15 08:21 | PN ---
Progress Note - Progress Note Date of Service: 05/15/17 SOAP: Subjective: Doing well. Pain c/w meds. Walked bed to "sharps container" yesterday. Scheduled tx to PMRU today Objective: NAD BLE - dressings in place - NVID Selected Entries 05/15/17 07:19 Temperature 98.8 F Pulse Rate 95 Respiratory 17 Rate Blood Pressure 140/58 (mmHg) O2 Sat by Pulse 94 Oximetry Laboratory Tests 05/14/17 05/14/17 05/14/17 05:33 05:33 07:22 WBC 12.4 H Hct 29 L POC Glucose (mg/dL) 221 H Hemoglobin A1c 8.3 H 05/14/17 05/14/17 05/14/17 12:14 17:14 18:59 WBC Hct 30 L POC Glucose (mg/dL) 196 H 219 H Hemoglobin A1c 05/15/17 07:20 WBC Hct POC Glucose (mg/dL) 251 H Hemoglobin A1c Assessment: POD 2 B TKA Plan: - Pt refused Coumadin so anticoagulation with ASA 325mg po bid - pain control with narcotics - encouraged IS - PT, WBAT BLE, out of bed - Tx to PMRU when medically stable - d/w Angel Luis - Dressing change and skin incision inspection by Nel - Blood glucose control and sliding scale insulin adjustment by hospitalist - WBC minor elevation consistent with stress reaction or "leukemoid" reaction per Hospitalist
[2017-05-15] MEDS: Heparin VIAL(*) 5000 UNITS/ML VIAL (FIVE THOUSAND) SUBCUT SCH (08:22)
[2017-05-15] MEDS: Docusate CAP* 100 MG PO SCH (08:23)
[2017-05-15] MEDS: Citalopram TAB* 40 MG PO SCH (08:23)
[2017-05-15] MEDS: Aspirin TAB* 325 MG PO SCH (08:23)
[2017-05-15 08:30] LABS: Hematocrit 28 % (35-47); Hemoglobin 9.6 g/dl (12.0-16.0)
[2017-05-15 08:36] LABS: Comments Flag Yes
--- NOTE | 2017-05-15 09:23 | PN ---
Progress Note - Progress Note Date of Service: 05/15/17 Note: Patient seen OOB in chair. Ready to go to PMRU today. Dressings removed from both knees. Incisions benign bilaterally. Incisions washed, dried, betadine soaked telfa, 4x4s and CAROLA wraps applied. Patient tolerated well. Discharge PMRU later today.
--- NOTE | 2017-05-16 06:36 | DS ---
DISCHARGE SUMMARY: DATE OF ADMISSION: 05/13/17 DATE OF DISCHARGE: 05/15/17 ATTENDING PHYSICIANS: Dr. Alexis Hein, Dr. Dakotah Fox. ADMISSION DIAGNOSIS: Severe arthritis, bilateral knees. DISCHARGE DIAGNOSIS: Severe arthritis, bilateral knees. SURGERY PERFORMED: Bilateral total knee arthroplasty. HOSPITAL COURSE: The patient is a 61-year-old female, who failed conservative management in both of her knees. She tried anti-inflammatories, physical therapy. She was unable to walk more than 3 blocks without severe pain and had significant night pain. Due to these problems, she elected to proceed with bilateral total knee arthroplasty and was taken to the operating room under the care of both Dr. Alexis Hein and Dr. Dakotah Fox. Dr. Alexis Hein performed right total knee arthroplasty, Dr. Dakotah Fox performed left total knee arthroplasty. She tolerated both procedures well and left the operating room in stable condition. Postoperatively, she progressed satisfactorily with physical therapy and occupational therapy goals. She had no acute postoperative complications. She was followed by the medical service regarding her diabetes and hypertension. It was felt she would benefit from additional rehabilitation prior to returning home and was found to be an acceptable candidate for the [facility] rehabilitation here at [facility]. She was found to be stable medically and orthopedically for transfer to their care on the date of 05/15/17. CONDITION ON DISCHARGE: The patient was afebrile. Her vital signs were stable. Both of her incisions are healing without evidence of infection. New Betadine dressings were applied to both incisions with new 4x4's and Hugh wrap today. Her calves are soft and nontender. Her neurovascular status was grossly intact bilaterally. PLAN: Discharged to [facility] rehabilitation. She will continue to bear weight as tolerated on both lower extremities. She will continue with Percocet for pain and will be on aspirin 325 mg p.o. b.i.d. for 4 to 6 weeks. Her diabetes medications and hypertension medications will be managed by the medical service. We recommend a followup in the office in roughly 4 to 6 weeks. PRYIA RENTERIA [id number]/[facility] #: [id number] [facility]
== END 2017-05-15 09:57 | DRG 302 ==
LOC: AA 06:19 → SSU 15:43 → PMRU 05-15 10:01 → SSU 05-15 10:01
PROVIDERS: ADMIT Orthopaedic Surgery; ATTEND Orthopaedic Surgery
PROC: 0SRD0J9 Replacement of Left Knee Joint with Synthetic Substitute, Cemented, Open Approach (ICD-10-PCS; 2017-05-13)
PROC: 0SRC0J9 Replacement of Right Knee Joint with Synthetic Substitute, Cemented, Open Approach (ICD-10-PCS; 2017-05-13)
PROC: 30233H0 Transfusion of Autologous Whole Blood into Peripheral Vein, Percutaneous Approach (ICD-10-PCS; principal; 2017-05-13 07:30)
DX: M17.0 Bilateral primary osteoarthritis of knee (principal); I10 Essential (primary) hypertension; E11.9 Type 2 diabetes mellitus without complications; F32.9 Major depressive disorder, single episode, unspecified; D72.829 Elevated white blood cell count, unspecified; E78.00 Pure hypercholesterolemia, unspecified; E78.5 Hyperlipidemia, unspecified; M25.762 Osteophyte, left knee; J45.909 Unspecified asthma, uncomplicated; K21.9 Gastro-esophageal reflux disease without esophagitis; Z90.710 Acquired absence of both cervix and uterus; Z88.2 Allergy status to sulfonamides; Z82.49 Family history of ischemic heart disease and other diseases of the circulatory system; Z83.3 Family history of diabetes mellitus; Z80.9 Family history of malignant neoplasm, unspecified; Z87.891 Personal history of nicotine dependence; Z88.1 Allergy status to other antibiotic agents; Z82.3 Family history of stroke; Z79.84 Long term (current) use of oral hypoglycemic drugs
CPT/HCPCS: 36415; 80048; 83036; 85014; 85018; 85025; 86850; 86900; 86901; 86922; 88305; 88311; A9270-GY; C1776; J0690; J1100; J1644; J1885; J2250; J2405; J2704; J2795; J3010

== ENCOUNTER 2017-05-15 09:39 | Inpatient (IN) | payer BC ==
[2017-05-15] MEDS ORDERED: Acetaminophen TAB* 325 MG PO PRN (11:15)
[2017-05-15] MEDS ORDERED: Magnesium Hydroxide LIQ* 30 ML UDC PO PRN (11:15)
[2017-05-15] MEDS ORDERED: Bisacodyl SUPP* 10 MG SUPP PR PRN (11:15)
[2017-05-15] MEDS ORDERED: Dextrose 50% Syringe 50 ML* 25 GM/50 ML SYRINGE IV PUSH PRN (11:23)
[2017-05-15] MEDS: Insulin LISPRO* 1 UNITS UNIT SUBCUT SCH ×3 (12:27→21:18)
[2017-05-15] MEDS: oxyCODONE/Acetamin 5/325 MG* TAB PO PRN ×3 (13:43→21:13)
[2017-05-15] MEDS: Heparin VIAL(*) 5000 UNITS/ML VIAL (FIVE THOUSAND) SUBCUT SCH ×2 (13:45→21:43)
[2017-05-15] MEDS: Atorvastatin* 10 MG TAB PO SCH (17:15)
--- NOTE | 2017-05-15 18:53 | HP ---
ADMISSION HISTORY AND PHYSICAL: DATE OF ADMISSION: 05/15/17 REASON FOR ADMISSION: Bilateral total knee replacements. HISTORY OF PRESENT ILLNESS: Ingrid Lopez is a 61-year-old female. She has a medical history significant for diabetes mellitus. She normally takes metformin XL 1000 mg daily. The patient has had a history of left worse than right severe bilateral knee osteoarthritis. She was only able to do stairs one at a time and had to curtail her walking. She had significant pain at night. She sought out consultation with Dr. Alexis Hein. X-rays were taken which showed severe degenerative joint disease. It was thought the best course of action would be for her to have bilateral total knee total knee replacements. She was admitted to [facility], 05/13/17, and underwent bilateral total knee replacements that day. Postop, her course was benign. Her hemoglobin and hematocrit dropped but she did not require a transfusion. She was felt to be medically stable. She is now being admitted for inpatient rehab so that she might return to independent living. The patient actually had her right knee arthroplasty done by Dr. Hein and her left knee arthroplasty was done by Dr. Fox. Postop, the patient's course was as mentioned relatively stable. She was felt to have physical therapy and occupational therapy needs. She is now being admitted for inpatient rehab so that she might return to independent living. PAST MEDICAL HISTORY: Significant for the aforementioned diabetes. CURRENT MEDICATIONS: Include: 1. Aspirin. 2. Heparin subcutaneously. 3. She is on Lispro insulin and Lantus insulin. 4. She takes Percocet for pain control. 5. She is on Lipitor. ALLERGIES: AUGMENTIN, as well as SULFA antibiotics. SOCIAL HISTORY: She is a nonsmoker, nondrinker. She lives in a 2-pat house with family members. There are 5 steps to enter. REVIEW OF SYSTEMS: The patient reports no current shortness of breath or chest pain. PHYSICAL EXAMINATION VITAL SIGNS: The patient's temperature is 98.0, blood pressure is 148/62, pulse 85, respirations 17. HEENT: Her extraocular movements are intact. Tongue is midline. NECK: Supple. LUNGS: Sound clear to auscultation bilaterally. HEART: Sounds regular. S1, S2 are audible. ABDOMEN: Soft and nontender. EXTREMITIES: No edema is noted. Peripheral pulses are intact. NEUROLOGIC: She is awake, alert and oriented. Muscle strength is 5/5 except the bilateral lower extremities which are 3/5 to 4/5 secondary to pain. FUNCTIONAL EXAM: The patient transfers with min assist. ASSESSMENT: Bilateral total knee replacements. PLAN: Integrate her into a comprehensive and therapeutic rehab program with the following goals. 1. Physical Therapy will work with the patient. They are going to work on functional transfer training, ambulation training with a walker. 2. Occupational Therapy will see the patient, work her on activities of daily living including toileting and toilet transfers. 3. Heparin for DVT prophylaxis. 4. Adequate analgesia. 5. Her bowels will be regulated. 6. Advanced directives: The patient is a full code. 7. donor services team leader will be closely involved to make sure that any services and equipment the patient requires are in place prior to discharge. 8. Family training as appropriate. 9. Home with appropriate services. ESTIMATED LENGTH OF STAY: Seven days. [id number]/[facility] #: [id number] MTDD
[2017-05-15] MEDS: Docusate CAP* 100 MG PO SCH (21:14)
[2017-05-15] MEDS: Senna TAB PO PRN (21:14)
[2017-05-15] MEDS: Insulin GLARGINE(*) 1 UNITS UNIT SUBCUT SCH (21:18)
[2017-05-16] MEDS: oxyCODONE/Acetamin 5/325 MG* TAB PO PRN ×5 (02:11→21:27)
[2017-05-16 05:51] LABS: Hematocrit 28 % (35-47); Hemoglobin 9.3 g/dl (12.0-16.0); Mean Corpuscular HGB Conc 34 g/dl (31-36); Mean Corpuscular Hemoglobin 31 pg (27-31); Mean Corpuscular Volume 93 fL (80-97); Mean Platelet Volume 8 um3 (7.4-10.4); Red Cell Distribution Width 12 % (10.5-15); White Blood Count 11.3 10^3/ul (3.5-10.8)
[2017-05-16] MEDS: Omeprazole CAP* 20 MG PO SCH (05:51)
[2017-05-16] MEDS: Heparin VIAL(*) 5000 UNITS/ML VIAL (FIVE THOUSAND) SUBCUT SCH ×3 (05:55→21:29)
[2017-05-16 06:06] LABS: Albumin 3.6 g/dL (3.2-5.2); BUN/Creatinine Ratio 11.7 (8-20); Calcium 9.1 mg/dL (8.6-10.3); EGFR African American 130.3 (>60); EGFR Non-African American 101.3 (>60); Potassium 3.9 mmol/L (3.5-5.0); Total Bilirubin 0.7 mg/dL (0.2-1.0); Total Protein 6.6 g/dL (6.4-8.9)
[2017-05-16] MEDS: Insulin LISPRO* 1 UNITS UNIT SUBCUT SCH ×4 (07:59→21:29)
[2017-05-16] MEDS: Docusate CAP* 100 MG PO SCH ×2 (08:36→21:27)
[2017-05-16] MEDS: metFORMIN* 500 MG TAB PO SCH ×2 (08:36→17:44)
[2017-05-16] MEDS: Aspirin EC TAB* 325 MG PO SCH (09:38)
[2017-05-16] MEDS: Citalopram TAB* 40 MG PO SCH (09:38)
--- NOTE | 2017-05-16 12:08 | PMRUTEAM ---
PMRU: Goals Current Status: Nursing: Current Status Skin Deviations [Left Knee] Incision Skin Deviations [Right Knee] Incision Skin Deviation Description [ CDI Left Knee] Skin Deviation Description [ CDI Right Knee] Physical Therapy: Current Status Bed Mobility Assistance Min Assist Transfer Moblility Assistance Contact Guard Assist Transfer/Bed Mobility Rolling Walker Recommended Devices Ambulation Assistance Contact Guard Assist Ambulation Assistive Devices Rolling Walker Number of Feet Patient 40 Ambulated Stairs Assistance not tested Stairs Recommended Devices Straight Cane,One Rail Number of Stairs Flight Occupational Therapy: Current Status Upper Body Dressing Supervision,Contact Guard Assist Lower Body Dressing Mod Assist Lower Body Dressing Progress educated on use of sock aid and inventory taker for temporary use Bathing Mod Assist Bathing Progress UB-S; LB-max A Toileting Min Assist Toileting Progress Min A with clothing management and BM hygiene Toilet Transfer Min Assist Toilet Transfer Progress min A at BSC or toilet d/t pain Shower Transfer Min Assist Eating Independent Instrumental ADL n/a Rec Therapy: Current Status Summary of Assessment and Pt. was recently admitted to the unit and Clinical Impression presented as tired but open to meeting with aligner typewriter . Pt. was engaged in conversation and identifies with interests and regularly involvement in them. Pt. was open to continued leisure visits. Treatment Goals Pt. will engage in leisure activities while on the unit. Treatment Plan Provide RT services and encourage involvement. Social Work: Current Status Discharge Plan return home with home care svs and family support Potential for Family Training pt's is involved and supportive Anticipated Discharge Home Destination Discharge With home care svs and family support Goals: Physical Therapy: Initial Goals Bed Mobility Assistance Independent Transfer Mobility Assistance Independent Transfer/Bed Mobility Rolling Walker Recommended Devices Ambulation Independent Ambulation Recommended Devices Rolling Walker Ambulation Distance 150 Stairs Assistance Independent Stair Recommended Devices Straight Cane,One Rail Number of Stairs Flight Home Exercise Program Independent Assistance Occupational Therapy: Initial Goals Goals to be Completed in (Days 7-10 ) Upper Body Bathing Routine Modified Independent with Lower Body Bathing Routine Modified Independent with Upper Body Dressing Routine Modified Independent with Lower Body Dressing Routine Modified Independent with Toilet Hygeine and Clothing Modified Independent with Management Routine Toilet Transfer Routine Modified Independent with Step-In Shower Transfer Modified Independent with Routine Tub Transfer Routine Modified Independent with Functional Transfers for ADL Modified Independent with Grooming Routine Modified Independent with Feeding Routine Independent Light Housekeeping Tasks Supervision/Set Up Social Work: Goals Discharge Plan return home with home care svs and family support Potential for Family Training pt's is involved and supportive Anticipated Discharge Home Destination Discharge With home care svs and family support Care Plan: Care Plan ADL's - Improve/Maintain Start: 05/15/17 12:00 Freq: DAILY Status: Active Target: Activity Type Activity Date Activity User E-Sign Co-Sign Detail Recorded Client Recorded Date Recorded By Document 05/15/17 12:00 [id number] 05/15/17 12:02 [id number] 05/15/17 12:00 PMRU Outcome: ADL's/ADL Transfers Orders/Interventions Occupational Therapy Evaluation & Treatment Communication Tool in Patient Room Device Yes: walker, commode Address Deficits Secondary To: Kev TKA Patient to receive OT 5x/wk for 60-120 Therex min/day Self Care Management Group Therapy Neuromuscular ReEducation UE/LE ADL's with Assist Yes ADL Transfers with Assist Yes Toileting: Transfers,Clothing Management Yes ,Hygeine w/Assist Light Kitchen/Laundry w/Assist Yes Progression Toward Outcome/Goals Progressing Outcome/Goals Met Pt evaluated for therapy and demos decreased ADL completion/ performance s/p kev TKA with pain. Pt would benefit from skilled service to increase overall IND with ADLs prior to returning home. DVT Prophylaxis- Improve/Maintain Start: 05/15/17 11:14 Freq: DAILY Status: Active Target: Activity Type Activity Date Activity User E-Sign Co-Sign Detail Recorded Client Recorded Date Recorded By Document 05/16/17 10:34 [id number] 05/16/17 10:35 [id number] 05/16/17 10:34 PMRU Outcome: DVT Prophylaxis Outcome/Goals Remains Free of DVT Complies with DVT Prophylaxis /Treatment Demonstrates Knowledge of DVT Prevention/ Treatment TEDS Stockings on Every AM, Off at HS Progression Toward Outcome/Goals Progressing Discharge Planning - Improve/Maintain Start: 05/15/17 11:14 Freq: DAILY Status: Active Target: Activity Type Activity Date Activity User E-Sign Co-Sign Detail Recorded Client Recorded Date Recorded By Document 05/16/17 02:47 [id number] 05/16/17 02:47 [id number] 05/16/17 02:47 PMRU Outcome: Discharge Planning Update Patient Family No Outcome/Goals Demonstrates Understanding of Discharge Plan Education-Improve/Maintain Start: 05/15/17 11:14 Freq: DAILY Status: Active Target: Activity Type Activity Date Activity User E-Sign Co-Sign Detail Recorded Client Recorded Date Recorded By Document 05/16/17 10:34 [id number] 05/16/17 10:35 [id number] 05/16/17 10:34 PMRU Outcome: Education Outcome/Goals Demonstrates Skills Encourage Questions Progression Toward Outcome/Goals Progressing /GI-Improve/Maintain Start: 05/15/17 11:14 Freq: DAILY Status: Active Target: Activity Type Activity Date Activity User E-Sign Co-Sign Detail Recorded Client Recorded Date Recorded By Document 05/16/17 10:34 [id number] 05/16/17 10:35 [id number] 05/16/17 10:34 PMRU Outcome: Genitourinary/ Gastrointestinal Genitourinary- Outcome/Goals Remain Free of Hospital- Acquired UTI Gastrointestinal-Outcome/Goals Maintain/ Achieve Bowel Regularity in Accordance with Pt's Baseline Prevent Constipation Laxatives as Ordered Progression Toward Outcome/Goals - Progressing Progression Toward Outcome/Goals - GI Progressing Medication Administration Start: 05/15/17 11:14 Freq: DAILY Status: Active Target: Activity Type Activity Date Activity User E-Sign Co-Sign Detail Recorded Client Recorded Date Recorded By Document 05/16/17 10:34 [id number] 05/16/17 10:35 [id number] 05/16/17 10:34 PMRU Outcome: Medication Administration Assess Patient Knowledge/Teach Med Yes Education for all Meds Outcome/Goals Patient Independent with Medication Administration at Home Demonstrates Understanding Progression Towards Outcome/Goals Progressing Is Patient Going Home on Lovenox? No Metabolic Status- Improve/Maintain Start: 05/15/17 11:14 Freq: DAILY Status: Active Target: Activity Type Activity Date Activity User E-Sign Co-Sign Detail Recorded Client Recorded Date Recorded By Document 05/16/17 10:34 [id number] 05/16/17 10:35 [id number] 05/16/17 10:34 PMRU Outcome: Metabolic Status Have Fingersticks Been Ordered Yes Fingerstick Order Frequency Other Outcome/Goals Maintain/ Improve Metabolic Status Demonstrate Knowledge of Prevention/ Treatment of Metabolic Imbalances Progression Toward Outcome/Goals Progressing Mobility- Improve/Maintain Start: 05/15/17 11:01 Freq: DAILY Status: Active Target: Activity Type Activity Date Activity User E-Sign Co-Sign Detail Recorded Client Recorded Date Recorded By Document 05/16/17 11:54 [id number] 05/16/17 11:54 05/16/17 11:54 PMRU Outcome: Mobility Physical Therapy Evaluation and Yes Treatment Activity OOB with Assistance Yes WBAT Yes Device Yes Assistance Yes Patient to be seen 5x/wk for 60-120 min/ Therex day for: Mobility Training Gait Training Balance Other Therapy Comment ROM Outcome/Goals Maintain/ Achieve Baseline Mobility Status Improve Mobility Status Demonstrates Proper Use of Assistive Devices Free from Complications of Immobility Progression Toward Outcome/Goals Progressing Bed Mobility Yes: Independent Transfers Yes: Modified Independent with RW Gait x ft Yes: Modified Independent 150 ' with RW Up/Down Stairs Yes: Independent 13 steps 1 railing , straight cane With HEP Yes: Independent Pain/Comfort- Improve/Maintain Start: 05/15/17 11:14 Freq: DAILY Status: Active Target: Activity Type Activity Date Activity User E-Sign Co-Sign Detail Recorded Client Recorded Date Recorded By Document 05/16/17 10:34 [id number] 05/16/17 10:35 [id number] 05/16/17 10:34 PMRU Outcome: Pain/Comfort Outcome/Goals Demonstrates Knowledge and Use of Available Comfort Measures Achieves Acceptable Comfort/Pain Level as Determined by Patient/Condit Maintain Comfort Level Allowing Patient to Fully Participate in Rehab Progression Toward Outcome/Goals Progressing Outcome/Goals Met Comment 2 percocets given Respiratory - Improve/Maintain Start: 05/15/17 11:14 Freq: DAILY Status: Active Target: Activity Type Activity Date Activity User E-Sign Co-Sign Detail Recorded Client Recorded Date Recorded By Document 05/16/17 10:34 [id number] 05/16/17 10:35 [id number] 05/16/17 10:34 PMRU Outcome: Respiratory Does Patient Have a Trach No Outcome/Goals Maintain/ Improve Baseline Respiratory Status Maintain/ Improve Activity Tolerance Prevent Pneumonia/ Atelectasis Progression Toward Outcome/Goals Progressing Safety- Improve/Maintain Start: 05/15/17 11:14 Freq: DAILY Status: Active Target: Activity Type Activity Date Activity User E-Sign Co-Sign Detail Recorded Client Recorded Date Recorded By Document 05/16/17 10:34 [id number] 05/16/17 10:35 [id number] 05/16/17 10:34 PMRU Outcome: Safety Outcome/Goals Remain Free of Injury or Harm Cooperates with Safety Measures for Least Restrictive Environment Prevent Falls/ Injury Progression Toward Outcome/Goals Progressing Skin- Improve/Maintain Start: 05/15/17 11:14 Freq: DAILY Status: Active Target: Activity Type Activity Date Activity User E-Sign Co-Sign Detail Recorded Client Recorded Date Recorded By Document 05/16/17 10:34 [id number] 05/16/17 10:35 [id number] 05/16/17 10:34 PMRU Outcome: Skin Skin Risk Level Medium Skin Orders Dressing Change Teach Patient Turn/Position q2hr While in Bed Outcome/Goals Free from Decubitus Surgical Incisions Healing Progression Toward Outcome/Goals Progressing Medicine Note: Length of Stay: [12 days] Anticipated Discharge Destination: Home Tentative Discharge Date: [05/27/17] Discharged to: [home]
--- NOTE | 2017-05-16 14:01 | RAD ---
INDICATION: Lower extremity pain and redness. Post bilateral knee replacement May 13, 2017 COMPARISON: No relevant prior exams available on the [facility] [place] PACS for comparison. TECHNIQUE: Condon scale, color Doppler, and spectral analysis of the deep veins of the BILATERAL lower extremities. Vessel compression, phasicity, and augmentation assessed. REPORT: The RIGHT common femoral, great saphenous, profunda femoral, duplicated femoral, popliteal, peroneal, and posterior tibial veins are patent. RIGHT lower extremity subcutaneous edema most prominent at the knee. The LEFT common femoral, great saphenous, profunda femoral, femoral, popliteal, peroneal, and posterior tibial veins are patent. LEFT lower extremity subcutaneous edema most prominent at the knee. IMPRESSION: No evidence for RIGHT or LEFT lower extremity deep venous thrombosis.
[2017-05-16 15:15] LABS: Urine Bilirubin Negative (Negative); Urine Glucose Negative (Negative); Urine Nitrite Negative (Negative)
[2017-05-16] MEDS: Atorvastatin* 10 MG TAB PO SCH (17:44)
[2017-05-16] MEDS: Insulin GLARGINE(*) 1 UNITS UNIT SUBCUT SCH (21:30)
[2017-05-16] MEDS: Senna TAB PO PRN (21:33)
[2017-05-17] MEDS: oxyCODONE/Acetamin 5/325 MG* TAB PO PRN ×4 (06:31→21:27)
[2017-05-17] MEDS: Omeprazole CAP* 20 MG PO SCH (06:32)
[2017-05-17] MEDS: Heparin VIAL(*) 5000 UNITS/ML VIAL (FIVE THOUSAND) SUBCUT SCH ×3 (06:33→21:34)
[2017-05-17 06:38] LABS: Hematocrit 25 % (35-47); Hemoglobin 8.6 g/dl (12.0-16.0); Mean Corpuscular HGB Conc 34 g/dl (31-36); Mean Corpuscular Hemoglobin 32 pg (27-31); Mean Corpuscular Volume 92 fL (80-97); Mean Platelet Volume 8 um3 (7.4-10.4); Red Blood Count 2.72 10^6/ul (4.0-5.4); Red Cell Distribution Width 13 % (10.5-15); White Blood Count 10.7 10^3/ul (3.5-10.8)
[2017-05-17 06:52] LABS: BUN/Creatinine Ratio 15.8 (8-20); EGFR African American 138.2 (>60); EGFR Non-African American 107.5 (>60); Potassium 4.8 mmol/L (3.5-5.0)
[2017-05-17] MEDS: Aspirin EC TAB* 325 MG PO SCH (07:46)
[2017-05-17] MEDS: Citalopram TAB* 40 MG PO SCH (07:46)
[2017-05-17] MEDS: metFORMIN* 500 MG TAB PO SCH ×2 (07:47→16:55)
[2017-05-17] MEDS: Insulin LISPRO* 1 UNITS UNIT SUBCUT SCH ×4 (07:47→21:33)
[2017-05-17] MEDS: Docusate CAP* 100 MG PO SCH ×2 (07:47→21:29)
[2017-05-17] MEDS: Atorvastatin* 10 MG TAB PO SCH (16:54)
[2017-05-17] MEDS: Senna TAB PO PRN (21:29)
[2017-05-17] MEDS: Insulin GLARGINE(*) 1 UNITS UNIT SUBCUT SCH (21:33)
[2017-05-18] MEDS: oxyCODONE/Acetamin 5/325 MG* TAB PO PRN ×4 (05:00→20:56)
[2017-05-18] MEDS: Heparin VIAL(*) 5000 UNITS/ML VIAL (FIVE THOUSAND) SUBCUT SCH ×3 (06:27→22:25)
[2017-05-18] MEDS: Omeprazole CAP* 20 MG PO SCH (06:39)
[2017-05-18] MEDS: Citalopram TAB* 40 MG PO SCH (08:20)
[2017-05-18] MEDS: Aspirin EC TAB* 325 MG PO SCH (08:20)
[2017-05-18] MEDS: Docusate CAP* 100 MG PO SCH ×2 (08:20→20:56)
[2017-05-18] MEDS: metFORMIN* 500 MG TAB PO SCH ×2 (08:20→16:45)
[2017-05-18] MEDS: Insulin LISPRO* 1 UNITS UNIT SUBCUT SCH ×4 (08:21→20:59)
[2017-05-18 09:50] LABS: Hematocrit 27 % (35-47); Hemoglobin 8.8 g/dl (12.0-16.0)
[2017-05-18] MEDS: Atorvastatin* 10 MG TAB PO SCH (16:45)
[2017-05-18] MEDS: Insulin GLARGINE(*) 1 UNITS UNIT SUBCUT SCH (20:59)
[2017-05-19] MEDS: Heparin VIAL(*) 5000 UNITS/ML VIAL (FIVE THOUSAND) SUBCUT SCH ×3 (06:37→21:14)
[2017-05-19] MEDS: Omeprazole CAP* 20 MG PO SCH (06:37)
[2017-05-19] MEDS: Aspirin EC TAB* 325 MG PO SCH (08:00)
[2017-05-19] MEDS: Docusate CAP* 100 MG PO SCH ×2 (08:00→22:28)
[2017-05-19] MEDS: metFORMIN* 500 MG TAB PO SCH ×2 (08:00→17:07)
[2017-05-19] MEDS: Citalopram TAB* 40 MG PO SCH (08:01)
[2017-05-19] MEDS: Insulin LISPRO* 1 UNITS UNIT SUBCUT SCH ×4 (08:01→21:07)
[2017-05-19] MEDS: oxyCODONE/Acetamin 5/325 MG* TAB PO PRN ×4 (08:05→21:13)
--- NOTE | 2017-05-19 12:25 | PMRUTEAM ---
PMRU: Goals Current Status: Nursing: Current Status Skin Deviations [Left Knee] Incision Skin Deviations [Right Knee] Incision Skin Deviation Description [ Telfa applied d/t scant amount of drainage Left Knee] Skin Deviation Description [ Telfa applied d/t scant amount of drainage Right Knee] Physical Therapy: Current Status Bed Mobility Assistance Mod Assist Transfer Moblility Assistance Contact Guard Assist Transfer/Bed Mobility Rolling Walker Recommended Devices Ambulation Assistance Contact Guard Assist Ambulation Assistive Devices Rolling Walker Number of Feet Patient 40 Ambulated Stairs Assistance not tested Stairs Recommended Devices Straight Cane,One Rail Number of Stairs not tested Occupational Therapy: Current Status Upper Body Dressing Supervision Lower Body Dressing Supervision Lower Body Dressing Progress educated on use of sock aid and pattern finisher for temporary use Bathing Supervision Bathing Progress UB-S; LB- supervision with adaptive equipment Toileting Supervision Toileting Progress supervision with clothing management and BM hygiene Toilet Transfer Supervision Toilet Transfer Progress supervision toilet Shower Transfer Contact Guard Assist Eating Independent Instrumental ADL n/a Rec Therapy: Current Status Summary of Assessment and Pt. was recently admitted to the unit and Clinical Impression presented as tired but open to meeting with creative writer . Pt. was engaged in conversation and identifies with interests and regularly involvement in them. Pt. was open to continued leisure visits. Treatment Goals Pt. will engage in leisure activities while on the unit. Treatment Plan Provide RT services and encourage involvement. Social Work: Current Status Discharge Plan return home with home care svs and family support Potential for Family Training pt's is involved and supportive Anticipated Discharge Home Destination Discharge With home care svs and family support Goals: Physical Therapy: Initial Goals Bed Mobility Assistance Independent Transfer Mobility Assistance Independent Transfer/Bed Mobility Rolling Walker Recommended Devices Ambulation Independent Ambulation Recommended Devices Rolling Walker Ambulation Distance 150 Stairs Assistance Independent Stair Recommended Devices Straight Cane,One Rail Number of Stairs Flight Home Exercise Program Independent Assistance Occupational Therapy: Initial Goals Goals to be Completed in (Days 7-10 ) Upper Body Bathing Routine Modified Independent with Lower Body Bathing Routine Modified Independent with Upper Body Dressing Routine Modified Independent with Lower Body Dressing Routine Modified Independent with Toilet Hygeine and Clothing Modified Independent with Management Routine Toilet Transfer Routine Modified Independent with Step-In Shower Transfer Modified Independent with Routine Tub Transfer Routine Modified Independent with Functional Transfers for ADL Modified Independent with Grooming Routine Independent Feeding Routine Independent Light Housekeeping Tasks Supervision/Set Up Nutrition: Goals Intervention Goals 1. adequate glycemic control per inpatient parameters; no s/sx hypo-or hyperglycemia 2. adequate po intake to support post-op healing and preserve lean body mass w/o add'l wt gain 3. regulation of post-op bowel pattern; no c/o constipation (or diarrhea) Social Work: Goals Discharge Plan return home with home care svs and family support Potential for Family Training pt's is involved and supportive Anticipated Discharge Home Destination Discharge With home care svs and family support Care Plan: Care Plan ADL's - Improve/Maintain Start: 05/15/17 12:00 Freq: DAILY Status: Active Target: Activity Type Activity Date Activity User E-Sign Co-Sign Detail Recorded Client Recorded Date Recorded By Document 05/15/17 12:00 [id number] 05/15/17 12:02 [id number] 05/15/17 12:00 PMRU Outcome: ADL's/ADL Transfers Orders/Interventions Occupational Therapy Evaluation & Treatment Communication Tool in Patient Room Device Yes: walker, commode Address Deficits Secondary To: Kev TKA Patient to receive OT 5x/wk for 60-120 Therex min/day Self Care Management Group Therapy Neuromuscular ReEducation UE/LE ADL's with Assist Yes ADL Transfers with Assist Yes Toileting: Transfers,Clothing Management Yes ,Hygeine w/Assist Light Kitchen/Laundry w/Assist Yes Progression Toward Outcome/Goals Progressing Outcome/Goals Met Pt evaluated for therapy and demos decreased ADL completion/ performance s/p kev TKA with pain. Pt would benefit from skilled service to increase overall IND with ADLs prior to returning home. DVT Prophylaxis- Improve/Maintain Start: 05/15/17 11:14 Freq: DAILY Status: Active Target: Activity Type Activity Date Activity User E-Sign Co-Sign Detail Recorded Client Recorded Date Recorded By Document 05/19/17 08:00 [id number] 05/19/17 08:04 [id number] 05/19/17 08:00 PMRU Outcome: DVT Prophylaxis Outcome/Goals Remains Free of DVT Complies with DVT Prophylaxis /Treatment Demonstrates Knowledge of DVT Prevention/ Treatment TEDS Stockings on Every AM, Off at HS Other Outcome/Goals CAROLA wraps Progression Toward Outcome/Goals Progressing Outcome/Goals Met Complies with DVT Prophylaxis /Treatment Discharge Planning - Improve/Maintain Start: 05/15/17 11:14 Freq: DAILY Status: Active Target: Activity Type Activity Date Activity User E-Sign Co-Sign Detail Recorded Client Recorded Date Recorded By Document 05/18/17 23:06 [id number] 05/18/17 23:09 [id number] 05/18/17 23:06 PMRU Outcome: Discharge Planning Identify Patient Needs yes Update Patient Family No Outcome/Goals Demonstrates Understanding of Discharge Plan Progression Toward Outcome/Goals Progressing Education-Improve/Maintain Start: 05/15/17 11:14 Freq: DAILY Status: Active Target: Activity Type Activity Date Activity User E-Sign Co-Sign Detail Recorded Client Recorded Date Recorded By Document 05/19/17 08:00 [id number] 05/19/17 08:04 [id number] 05/19/17 08:00 PMRU Outcome: Education Outcome/Goals Demonstrate/ Verbalize Understanding of Written Discharge Instructions Demonstrates Skills Encourage Questions Progression Toward Outcome/Goals Progressing /GI-Improve/Maintain Start: 05/15/17 11:14 Freq: DAILY Status: Active Target: Activity Type Activity Date Activity User E-Sign Co-Sign Detail Recorded Client Recorded Date Recorded By Document 05/19/17 08:00 [id number] 05/19/17 08:04 [id number] 05/19/17 08:00 PMRU Outcome: Genitourinary/ Gastrointestinal Genitourinary- Outcome/Goals Maintain/ Achieve Urinary Continence Maintain/ Achieve Adequate Urinary Output Remain Free of Hospital- Acquired UTI Gastrointestinal-Outcome/Goals Maintain/ Achieve Bowel Regularity in Accordance with Pt's Baseline Prevent Constipation Laxatives as Ordered Progression Toward Outcome/Goals - Progressing Progression Toward Outcome/Goals - GI Progressing Medication Administration Start: 05/15/17 11:14 Freq: DAILY Status: Active Target: Activity Type Activity Date Activity User E-Sign Co-Sign Detail Recorded Client Recorded Date Recorded By Document 05/19/17 08:00 [id number] [email or web address] 05/19/17 08:04 [id number] 05/19/17 08:00 PMRU Outcome: Medication Administration Assess Patient Knowledge/Teach Med Yes Education for all Meds Outcome/Goals Patient Independent with Medication Administration at Home Demonstrates Understanding Progression Towards Outcome/Goals Progressing Is Patient Going Home on Lovenox? No Metabolic Status- Improve/Maintain Start: 05/15/17 11:14 Freq: DAILY Status: Active Target: Activity Type Activity Date Activity User E-Sign Co-Sign Detail Recorded Client Recorded Date Recorded By Document 05/19/17 08:00 [id number] 05/19/17 08:04 [id number] 05/19/17 08:00 PMRU Outcome: Metabolic Status Have Fingersticks Been Ordered Yes Fingerstick Order Frequency AC & HS Outcome/Goals Maintain/ Improve Metabolic Status Demonstrate Knowledge of Prevention/ Treatment of Metabolic Imbalances Progression Toward Outcome/Goals Progressing Mobility- Improve/Maintain Start: 05/15/17 11:01 Freq: DAILY Status: Active Target: Activity Type Activity Date Activity User E-Sign Co-Sign Detail Recorded Client Recorded Date Recorded By Document 05/17/17 15:11 [id number] [email or web address] 05/17/17 15:11 [id number] 05/17/17 15:11 PMRU Outcome: Mobility Physical Therapy Evaluation and Yes Treatment Activity OOB with Assistance Yes WBAT Yes Device Yes Assistance Yes Patient to be seen 5x/wk for 60-120 min/ Therex day for: Mobility Training Gait Training Balance Other Therapy Comment ROM Outcome/Goals Maintain/ Achieve Baseline Mobility Status Improve Mobility Status Demonstrates Proper Use of Assistive Devices Free from Complications of Immobility Progression Toward Outcome/Goals Progressing Bed Mobility Yes: Independent Transfers Yes: Modified Independent with RW Gait x ft Yes: Modified Independent 150 ' with RW Up/Down Stairs Yes: Independent 13 steps 1 railing , straight cane With HEP Yes: Independent Pain/Comfort- Improve/Maintain Start: 05/15/17 11:14 Freq: DAILY Status: Active Target: Activity Type Activity Date Activity User E-Sign Co-Sign Detail Recorded Client Recorded Date Recorded By Document 05/19/17 08:00 [id number] [email or web address] 05/19/17 08:04 [id number] 05/19/17 08:00 PMRU Outcome: Pain/Comfort Outcome/Goals Demonstrates Knowledge and Use of Available Comfort Measures Achieves Acceptable Comfort/Pain Level as Determined by Patient/Condit Maintain Comfort Level Allowing Patient to Fully Participate in Rehab Progression Toward Outcome/Goals Progressing Respiratory - Improve/Maintain Start: 05/15/17 11:14 Freq: DAILY Status: Active Target: Activity Type Activity Date Activity User E-Sign Co-Sign Detail Recorded Client Recorded Date Recorded By Document 05/19/17 08:00 [id number] [id number] 05/19/17 08:07 [id number] 05/19/17 08:00 PMRU Outcome: Respiratory Does Patient Have a Trach No Outcome/Goals Maintain/ Improve Baseline Respiratory Status Maintain/ Improve Activity Tolerance Prevent Pneumonia/ Atelectasis Progression Toward Outcome/Goals Progressing Safety- Improve/Maintain Start: 05/15/17 11:14 Freq: DAILY Status: Active Target: Activity Type Activity Date Activity User E-Sign Co-Sign Detail Recorded Client Recorded Date Recorded By Document 05/19/17 08:00 [id number] [id number] 05/19/17 08:07 [id number] 05/19/17 08:00 PMRU Outcome: Safety Outcome/Goals Remain Free of Injury or Harm Cooperates with Safety Measures for Least Restrictive Environment Prevent Falls/ Injury Progression Toward Outcome/Goals Progressing Outcome/Goals Met Cooperates with Safety Measures for Least Restrictive Environment Outcome/Goals Met Comment Pt got up and used BR without calling. Let pt know that if she did that again we may have to put a PA on her. That you never know that one time she is weak and falls. Will continue to monitor. Skin- Improve/Maintain Start: 05/15/17 11:14 Freq: DAILY Status: Active Target: Activity Type Activity Date Activity User E-Sign Co-Sign Detail Recorded Client Recorded Date Recorded By Document 05/19/17 08:00 [id number] [email or web address] 05/19/17 08:07 [id number] 05/19/17 08:00 PMRU Outcome: Skin Skin Risk Level Medium Skin Orders Dressing Change Teach Patient Turn/Position q2hr While in Bed Outcome/Goals Free from Decubitus Surgical Incisions Healing Progression Toward Outcome/Goals Progressing Medicine Note: Length of Stay: [8 days] Anticipated Discharge Destination: Home Tentative Discharge Date: [05/27/17] Discharged to: [home]
[2017-05-19] MEDS: Atorvastatin* 10 MG TAB PO SCH (17:07)
[2017-05-19] MEDS: Insulin GLARGINE(*) 1 UNITS UNIT SUBCUT SCH (21:05)
[2017-05-20] MEDS: Omeprazole CAP* 20 MG PO SCH (05:10)
[2017-05-20] MEDS: Heparin VIAL(*) 5000 UNITS/ML VIAL (FIVE THOUSAND) SUBCUT SCH ×3 (05:10→21:00)
[2017-05-20] MEDS: Docusate CAP* 100 MG PO SCH ×2 (08:40→21:03)
[2017-05-20] MEDS: Citalopram TAB* 40 MG PO SCH (08:40)
[2017-05-20] MEDS: Aspirin EC TAB* 325 MG PO SCH (08:40)
[2017-05-20] MEDS: metFORMIN* 500 MG TAB PO SCH ×2 (08:40→16:54)
[2017-05-20] MEDS: Insulin LISPRO* 1 UNITS UNIT SUBCUT SCH ×4 (08:41→20:58)
[2017-05-20] MEDS: oxyCODONE/Acetamin 5/325 MG* TAB PO PRN ×3 (11:29→22:22)
[2017-05-20] MEDS: Atorvastatin* 10 MG TAB PO SCH (16:54)
[2017-05-20] MEDS: Insulin GLARGINE(*) 1 UNITS UNIT SUBCUT SCH (21:00)
[2017-05-21] MEDS: Omeprazole CAP* 20 MG PO SCH (04:52)
[2017-05-21] MEDS: Heparin VIAL(*) 5000 UNITS/ML VIAL (FIVE THOUSAND) SUBCUT SCH ×3 (04:52→21:29)
[2017-05-21] MEDS: metFORMIN* 500 MG TAB PO SCH ×2 (07:53→16:55)
[2017-05-21] MEDS: Citalopram TAB* 40 MG PO SCH (07:53)
[2017-05-21] MEDS: Aspirin EC TAB* 325 MG PO SCH (07:53)
[2017-05-21] MEDS: Docusate CAP* 100 MG PO SCH ×2 (07:53→21:21)
[2017-05-21] MEDS: oxyCODONE/Acetamin 5/325 MG* TAB PO PRN ×3 (07:54→21:20)
[2017-05-21] MEDS: Insulin LISPRO* 1 UNITS UNIT SUBCUT SCH ×4 (07:55→21:21)
[2017-05-21] MEDS: Atorvastatin* 10 MG TAB PO SCH (16:55)
[2017-05-21] MEDS: Insulin GLARGINE(*) 1 UNITS UNIT SUBCUT SCH (21:22)
[2017-05-22] MEDS: Omeprazole CAP* 20 MG PO SCH (06:09)
[2017-05-22] MEDS: Heparin VIAL(*) 5000 UNITS/ML VIAL (FIVE THOUSAND) SUBCUT SCH ×3 (06:09→21:27)
[2017-05-22] MEDS: Aspirin EC TAB* 325 MG PO SCH (07:34)
[2017-05-22] MEDS: Docusate CAP* 100 MG PO SCH ×2 (07:34→21:27)
[2017-05-22] MEDS: metFORMIN* 500 MG TAB PO SCH ×2 (07:34→16:50)
[2017-05-22] MEDS: oxyCODONE/Acetamin 5/325 MG* TAB PO PRN ×3 (07:34→21:19)
[2017-05-22] MEDS: Citalopram TAB* 40 MG PO SCH (07:34)
[2017-05-22] MEDS: Insulin LISPRO* 1 UNITS UNIT SUBCUT SCH ×4 (07:35→21:18)
[2017-05-22] MEDS: Atorvastatin* 10 MG TAB PO SCH (16:50)
[2017-05-22] MEDS: Insulin GLARGINE(*) 1 UNITS UNIT SUBCUT SCH (21:20)
--- NOTE | 2017-05-22 22:02 | RAD ---
Indication: Right total knee replacement. 2 views of the right knee demonstrates right knee replacement is in fact position. No evidence of periprosthetic fracture is noted. IMPRESSION: Knee replacement appearing in satisfactory position.
--- NOTE | 2017-05-22 22:03 | RAD ---
Indication: Left knee replacement. 2 views of left knee demonstrates left knee replacement in satisfactory position. Multiple surgical clips are noted. IMPRESSION: Left knee replacement in satisfactory position.
[2017-05-23] MEDS: Omeprazole CAP* 20 MG PO SCH (06:19)
[2017-05-23] MEDS: Heparin VIAL(*) 5000 UNITS/ML VIAL (FIVE THOUSAND) SUBCUT SCH ×3 (06:20→21:20)
[2017-05-23] MEDS: oxyCODONE/Acetamin 5/325 MG* TAB PO PRN ×3 (07:27→21:14)
[2017-05-23] MEDS: Insulin LISPRO* 1 UNITS UNIT SUBCUT SCH ×4 (07:43→21:15)
[2017-05-23] MEDS: Aspirin EC TAB* 325 MG PO SCH (09:28)
[2017-05-23] MEDS: Citalopram TAB* 40 MG PO SCH (09:28)
[2017-05-23] MEDS: metFORMIN* 500 MG TAB PO SCH ×2 (09:28→16:43)
[2017-05-23] MEDS: Docusate CAP* 100 MG PO SCH ×2 (09:29→21:20)
[2017-05-23 11:52] LABS: Hematocrit 26 % (35-47); Hemoglobin 8.6 g/dl (12.0-16.0); Mean Corpuscular HGB Conc 33 g/dl (31-36); Mean Corpuscular Hemoglobin 31 pg (27-31); Mean Corpuscular Volume 95 fL (80-97); Mean Platelet Volume 8 um3 (7.4-10.4); Red Blood Count 2.75 10^6/ul (4.0-5.4); Red Cell Distribution Width 13 % (10.5-15); White Blood Count 8.5 10^3/ul (3.5-10.8)
[2017-05-23 12:10] LABS: Albumin 3.6 g/dL (3.2-5.2); BUN/Creatinine Ratio 20.6 (8-20); Calcium 9.3 mg/dL (8.6-10.3); EGFR African American 112.8 (>60); EGFR Non-African American 87.7 (>60); Globulin 3.1 g/dL (2-4); Potassium 4.6 mmol/L (3.5-5.0); Total Bilirubin 0.5 mg/dL (0.2-1.0); Total Protein 6.7 g/dL (6.4-8.9)
[2017-05-23] MEDS: Atorvastatin* 10 MG TAB PO SCH (16:43)
[2017-05-23] MEDS: Insulin GLARGINE(*) 1 UNITS UNIT SUBCUT SCH (21:19)
[2017-05-24] MEDS: oxyCODONE/Acetamin 5/325 MG* TAB PO PRN ×4 (01:24→20:42)
[2017-05-24] MEDS: Heparin VIAL(*) 5000 UNITS/ML VIAL (FIVE THOUSAND) SUBCUT SCH ×3 (05:36→21:18)
[2017-05-24] MEDS: Omeprazole CAP* 20 MG PO SCH (05:37)
[2017-05-24] MEDS: Insulin LISPRO* 1 UNITS UNIT SUBCUT SCH ×4 (07:26→20:23)
[2017-05-24] MEDS: Citalopram TAB* 40 MG PO SCH (07:46)
[2017-05-24] MEDS: Aspirin EC TAB* 325 MG PO SCH (07:46)
[2017-05-24] MEDS: metFORMIN* 500 MG TAB PO SCH ×2 (07:46→16:48)
[2017-05-24] MEDS: Docusate CAP* 100 MG PO SCH ×2 (07:48→21:20)
[2017-05-24] MEDS: Atorvastatin* 10 MG TAB PO SCH (16:48)
[2017-05-24] MEDS: Insulin GLARGINE(*) 1 UNITS UNIT SUBCUT SCH (20:42)
[2017-05-25] MEDS: Omeprazole CAP* 20 MG PO SCH (04:48)
[2017-05-25] MEDS: Heparin VIAL(*) 5000 UNITS/ML VIAL (FIVE THOUSAND) SUBCUT SCH (04:49)
[2017-05-25] MEDS: Insulin LISPRO* 1 UNITS UNIT SUBCUT SCH ×4 (08:10→20:26)
[2017-05-25] MEDS: metFORMIN* 500 MG TAB PO SCH ×2 (08:11→16:43)
[2017-05-25] MEDS: Citalopram TAB* 40 MG PO SCH (08:11)
[2017-05-25] MEDS: oxyCODONE/Acetamin 5/325 MG* TAB PO PRN ×3 (08:11→21:24)
[2017-05-25] MEDS: Aspirin EC TAB* 325 MG PO SCH ×3 (08:11→20:42)
[2017-05-25] MEDS: Docusate CAP* 100 MG PO SCH ×2 (08:23→21:22)
[2017-05-25] MEDS: Atorvastatin* 10 MG TAB PO SCH (16:42)
[2017-05-26] MEDS: Omeprazole CAP* 20 MG PO SCH (06:28)
[2017-05-26 06:33] VITALS: BP 127/55
[2017-05-26] MEDS: Citalopram TAB* 40 MG PO SCH (08:09)
[2017-05-26] MEDS: Aspirin EC TAB* 325 MG PO SCH (08:09)
[2017-05-26] MEDS: metFORMIN* 500 MG TAB PO SCH (08:09)
[2017-05-26] MEDS: oxyCODONE/Acetamin 5/325 MG* TAB PO PRN ×2 (08:09→12:55)
[2017-05-26] MEDS: Docusate CAP* 100 MG PO SCH (08:10)
[2017-05-26] MEDS: Insulin LISPRO* 1 UNITS UNIT SUBCUT SCH ×2 (09:10→12:01)
--- NOTE | 2017-05-27 11:40 | DS ---
CC: Lisa Rogers NP * DATE OF ADMISSION: 05/15/2017. DATE OF DISCHARGE: 05/26/2017. DISCHARGE DIAGNOSES: 1. Bilateral total knee replacements. 2. Diabetes mellitus. 3. Hypercholesterolemia. HISTORY OF PRESENT ILLNESS AND HOSPITAL COURSE: For a complete history of the events leading up to her rehab stay, please see the history and physical dictated by me on 05/15/2017. While on the rehab unit, the patient had Doppler' s of her lower extremities because of edema. No DVT's were found. She was continued on Heparin for DVT prophylaxis. The patient's wounds looked clean and dry during her rehab stay. The patient requested to have an x-ray done of her knees because she said she felt a catch in her knees. X-rays were done on May 22 and were read as normal postop x-rays. The patient was seen by both Physical and Occupational Therapy and made good gains with both disciplines. With physical therapy at the time of admission, the patient required min assist to guard to do a transfer. She could ambulate about 15 feet with contact guard. With occupational therapy, she was min assist for toileting and toilet transfers. By the time of discharge, she was independent in ambulation, independent in transfers, ambulating 300 feet going up and down stair, independent in toileting and toilet transfers. She was discharged home 2016. DISCHARGE DIET: Consistent carbohydrate. DISCHARGE MEDICATIONS: 1. Aspirin 325 mg twice daily. 2. Soma 350 mg at bedtime as needed. 3. Percocet one to two tablets every 4 hours as needed. 4. Lexapro 20 mg daily. 5. Metformin 1000 mg daily. 6. Lipitor 10 mg daily. 7. Cathi 180 mg daily as needed. 8. Omeprazole 20 mg daily. SERVICES AFTER DISCHARGE: Through [facility]. She will have home nursing and home physical therapy. FOLLOW-UP: Follow-up with Dr. Alexis Hein as scheduled for staple removal in one to three days. [id number]/[facility] #: [id number] MTDD
== END 2017-05-26 13:10 | disposition home or self-care (01) | DRG 860 ==
LOC: PMRU 10:12
PROVIDERS: ADMIT Physical Medicine & Rehabilitation; ATTEND Physical Medicine & Rehabilitation
PROC: F07Z5ZZ Bed Mobility Treatment (ICD-10-PCS; principal; 2017-05-15)
PROC: F07Z9ZZ Gait Training/Functional Ambulation Treatment (ICD-10-PCS; 2017-05-15)
PROC: F07Z8ZZ Transfer Training Treatment (ICD-10-PCS; 2017-05-15)
PROC: F08Z0ZZ Bathing/Showering Techniques Treatment (ICD-10-PCS; 2017-05-15)
PROC: F08Z1ZZ Dressing Techniques Treatment (ICD-10-PCS; 2017-05-15)
PROC: F08Z3ZZ Feeding/Eating Treatment (ICD-10-PCS; 2017-05-15)
DX: Z47.1 Aftercare following joint replacement surgery (principal); D62 Acute posthemorrhagic anemia; E87.1 Hypo-osmolality and hyponatremia; E11.9 Type 2 diabetes mellitus without complications; R60.0 Localized edema; D72.829 Elevated white blood cell count, unspecified; Z96.653 Presence of artificial knee joint, bilateral; E78.00 Pure hypercholesterolemia, unspecified; Z79.84 Long term (current) use of oral hypoglycemic drugs; Z79.82 Long term (current) use of aspirin; Z79.899 Other long term (current) drug therapy; Z88.1 Allergy status to other antibiotic agents; Z88.2 Allergy status to sulfonamides
CPT/HCPCS: 36415; 80048; 80053; 81003; 85014; 85018; 85025; 93970; A9270-GY; J1644

== ENCOUNTER 2017-07-08 07:19 | Day surgery (SDC) | payer BC ==
--- NOTE | 2017-07-07 14:41 | HP ---
HISTORY AND PHYSICAL: DATE OF ADMISSION: She is coming in to [facility] 07/08/17 for left knee surgical care. CHIEF COMPLAINT: Left knee surgery wound drainage persistent. HISTORY OF PRESENT ILLNESS: The patient had bilateral knee replacements on and her postoperative course has been uncomplicated. She has been attending physical therapy. She has been utilizing aspirin 325 twice a day and the only problem has been in the last few weeks there has been wound drainage, which we felt initially was a stitch abscess, but it has persisted and continued , and therefore, we recommended an exploration of the surgical wound just superior to the patella. She has not had fevers or chills. She has been eating and drinking without difficulty. The wound drainage has been clear until a little more cloudy recently. She has been scrubbing it with soap and water and keeping it covered with Neosporin and that has not resulted in resolution of the problem and she thinks it is a little more red just distal to the opening. PAST MEDICAL HISTORY: She has not had a heart attack, she has not had chest pain. She had elevated LFTs a year ago and this resolved and they did not think she had a viral type of hepatitis. No kidney problems. MEDICATIONS: She takes: 1. Lipitor 10 mg a day. 2. Lexapro 20 mg a day. 3. Metformin 1000 mg morning and h.s. 4. Omeprazole 20 mg each day. 5. She is stopping the aspirin 325 mg b.i.d. today on 07/07/17. SOCIAL HISTORY: She quit smoking in 1992. She does not drink. No cancers. PHYSICAL EXAMINATION GENERAL: Well nourished, well developed, not acutely distressed. VITAL SIGNS: Her temp is 97.7, height 62, weight 200, blood pressure 136/86. HEENT: Head is NC/AT. LUNGS: Clear bilaterally. HEART: Regular. S1, S2 normal. No murmurs or gallops. ABDOMEN: Soft and nontender. EXTREMITIES: The right knee, a well-healed surgical scar with extension 0, flexion 90, no redness, fluctuance or drainage. MCL and LCL are stable. Thigh and calf are soft. She does have some pitting edema of her shins bilaterally. The left knee has a 2 to 3 mm opening with very slight redness around it and just distal to this, there is a 2 cm reddened area that is a little bit elevated. Left knee extension -2 to 3 degrees. Flexion 90 degrees. MCL and LCL are stable. Thigh and calf are soft and nontender. NEUROLOGIC: The cranial nerves are grossly intact. IMPRESSION: Left knee wound drainage. We thought it was a stitch abscess and it has persisted, so I recommended a left total knee exploration of the superficial wound with irrigation, cultures, debridement, and probable closure. She is advised of concern regarding persistent drainage, knee replacement, and we will also get a CBC, sed rate, and a C-reactive protein today and then the surgical care tomorrow. Her knee today was redressed with gauze, antibiotic ointment, and an Hugh bandage. [id number]/[facility] #: [id number] [facility]PITAL[facility]ley
[~2017-07-08 07:19] MED LIST changes: -Buffered Lidocaine 0.9% SYRIN* 5 ML/SYR SYRINGE ONE; -Famotidine IV* 10 MG/ML 2 ML (20 mg) IV ONE; -Famotidine IV* 10 MG/ML 2 ML (20 mg) ONE; -ceFAZolin 2 GM PREMIX(*) 2 GM/50 ML BAG IVPB ONE
[2017-07-08] MEDS ORDERED: ceFAZolin 2 GM PREMIX (*) 50 ML IVPB ONE (07:29)
[2017-07-08] MEDS ORDERED: Buffered Lidocaine 0.9% SYRIN* 5 ML/SYR SYRINGE ONE (07:29)
[2017-07-08] MEDS ORDERED: Midazolam* 1 MG/ML 5 ML VIAL (5 MG) ONE (09:14)
[2017-07-08] MEDS ORDERED: Propofol* 10 MG/ML 20 ML BTL IV PUSH ONE (09:17)
[2017-07-08] MEDS ORDERED: Ondansetron INJ* 2 MG/ML VIAL ONE (09:17)
[2017-07-08] MEDS ORDERED: Chloroprocaine 2%* 20 ML VIAL ONE (09:17)
[2017-07-08] MEDS ORDERED: Ketorolac INJ* 30 MG/ML 1 ML VIAL ONE (09:17)
[2017-07-08] MEDS ORDERED: Bupivacaine 0.25% SDV* 30 ML ONE (09:22)
[2017-07-08] MEDS ORDERED: fentaNYL* 50 MCG/ML 2 ML VIAL (100 MCG VIAL) IV PRN (09:54)
[2017-07-08] MEDS ORDERED: Ondansetron INJ* 2 MG/ML VIAL IV PRN (09:54)
[2017-07-08] MEDS ORDERED: oxyCODONE/Acetamin 5/325 MG* TAB PO PRN (09:54)
[2017-07-08] MEDS ORDERED: Bacitracin OINTMENT* 1 TUBE ONE (10:25)
[2017-07-08 12:00] VITALS: BP 131/73
--- NOTE | 2017-07-09 01:30 | OP ---
DATE OF OPERATION: 07/08/17 [facility] DATE OF : 53 SURGICAL CARE: Left knee. SURGEON: Alexis Hein MD GLASS BLOCK BENDER: PRIYA Wood ANESTHESIOLOGIST: Dr. Giancarlo Garcia. ANESTHESIA: Spinal with IV sedation. PRE-OP DIAGNOSIS: Persistent small drainage area, left total knee replacement. POST-OP DIAGNOSIS: Persistent small drainage area, left total knee replacement. OPERATIVE PROCEDURE: Left knee anterior incision, debridement, culture, irrigation, and closure. This is a contaminated case. COMPLICATIONS: There were no complications. DRAINS: There were no drains. TOURNIQUET: Tourniquet control was utilized on the left leg. CONDITION: Condition was stable to the recovery room. OPERATIVE INDICATION: Because the small opening had not healed and had some persistent drainage, which we did not feel was pus, I felt that the area had to be explored to look for any festering loose body, or possible material in the subcutaneous tissues and to evaluate those tissues and to evaluate whether the area of concern went into the knee replacement. The preoperative white count was 6000, sedimentation rate 30, and the C-reactive protein approximately 2.4. DESCRIPTION OF PROCEDURE: The patient was brought to the operating room and placed on the operating room table in the supine position. Following the administration of the spinal anesthetic, she was returned to the supine position. The left proximal thigh was wrapped with a tourniquet and the left leg was given a preliminary prep at the knee and then given a final prep from the tourniquet to the tips of the toes and then draped free and sealed off in a same fashion as we do for total knee replacement. We did our universal protocol time-out confirming Ingrid John and the plan for incision and drainage and debridement of the left anterior knee. We all agreed and we proceeded. The leg was exsanguinated. The tourniquet elevated to 275. The knee was opened for a centimeter proximal and 3 cm distal to the 2 to 3 mm opening that had persistent drainage. There was no pus in the subcutaneous tissues and I went down to the quadriceps tendon. It appeared to be absolutely normal. There was a couple of punctate areas in the subcu that might have been consistent with stitches and these were debrided. I debrided the area of drainage with just taking a small ellipse of tissue out around either side of the small drainage tract and these adjacent tissues appeared to be normal as well. We did a culture. The patient had not had any antibiotics and then we irrigated with 3 L of saline. The tissues were also swabbed with lap sponges. Careful hemostasis was achieved. The subcu was closed with interrupted 2-0 Polysorbs and the skin was closed with interrupted vertical mattress 3-0 Prolene sutures and a few simple sutures. The skin and subcu 3 cm away from the surgery were infiltrated with Marcaine 0.25% without epinephrine and then the wound was washed and dried and covered with triple antibiotic ointment, Betadine-soaked release, sterile gauze, sterile Webril, further Webril, an ABD pad and a 6-inch Hugh bandage loosely applied. The patient was returned to the hospital bed and to the recovery room in stable and satisfactory condition. I think the prognosis is very satisfactory. I do not think that the left total knee replacement was embarrassed by this activity between the skin and the quadriceps tendon and I think the prognosis is very satisfactory. The patient will be followed up carefully in my office. [id number]/[facility] #: [id number] FLAQUITO
== END 2017-07-08 12:10 | disposition home or self-care (01) ==
LOC: OR 07:19
PROVIDERS: ATTEND Orthopaedic Surgery
DX: T84.54XA Infection and inflammatory reaction due to internal left knee prosthesis, initial encounter (principal); Y79.2 Prosthetic and other implants, materials and accessory orthopedic devices associated with adverse incidents; E66.9 Obesity, unspecified; I10 Essential (primary) hypertension; J45.909 Unspecified asthma, uncomplicated; K21.9 Gastro-esophageal reflux disease without esophagitis; F32.9 Major depressive disorder, single episode, unspecified; E11.9 Type 2 diabetes mellitus without complications; Z79.84 Long term (current) use of oral hypoglycemic drugs; Z79.82 Long term (current) use of aspirin; Z87.891 Personal history of nicotine dependence
CPT/HCPCS: 87070; 87073; 87205; A9270-GY; J0690; J1885; J2250; J2400; J2405; J2704

== ENCOUNTER 2019-06-30 15:15 | Emergency (ER) | payer BC ==
[2019-06-30 15:37] VITALS: BP 143/71
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
== END 2019-06-30 17:09 | disposition home or self-care (01) ==
LOC: UCCORT 15:15
DX: S69.91XA Unspecified injury of right wrist, hand and finger(s), initial encounter (principal); S60.221A Contusion of right hand, initial encounter; S60.011A Contusion of right thumb without damage to nail, initial encounter; S70.12XA Contusion of left thigh, initial encounter; V28.4XXA Motorcycle driver injured in noncollision transport accident in traffic accident, initial encounter; Y92.9 Unspecified place or not applicable; M19.041 Primary osteoarthritis, right hand; E11.9 Type 2 diabetes mellitus without complications; I10 Essential (primary) hypertension; Z88.1 Allergy status to other antibiotic agents; Z88.0 Allergy status to penicillin; Z88.2 Allergy status to sulfonamides; Z96.653 Presence of artificial knee joint, bilateral; Z87.891 Personal history of nicotine dependence
CPT/HCPCS: 99212; G0463